=== PATIENT | male | born 1950 | race Caucasian/White ===

== ENCOUNTER 2018-09-21 03:17 | Observation (INO) ==
[2018-09-21 04:25] LABS: Bilirubin,Urine Negative (Negative); Clarity,Urine Clear (Clear); Color,Urine Straw (Yellw/Straw); Glucose,Urine (UA) Negative (Negative); Leukocyte Esterase,Urine Negative (Negative); Nitrite,Urine Negative (Negative); Specific Gravity,Urine 1.003 (1.002-1.035)
[2018-09-21 04:26] LABS: Baso % (Auto) 0.6 % (0.0-2.0); Eos # (Auto) 0.4 th/mm3 (0.0-0.4); Eos % (Auto) 7.4 % (0.0-4.0); Hematocrit 45.5 % (39.0-51.0); Hemoglobin 15.5 gm/dL (13.0-17.0); Lymph # (Auto) 2.1 th/mm3 (1.0-4.8); Mean Corpuscular HGB Conc 34.2 % (32.0-36.0); Mean Corpuscular Hemoglobin 31.4 pg (27.0-34.0); Mean Corpuscular Volume 91.8 fL (80.0-100.0); Mean Platelet Volume 9.6 fL (7.0-11.0); Mono # (Auto) 0.5 th/mm3 (0.0-0.9); Mono % (Auto) 9.3 % (0.0-8.0); Neut # (Auto) 2.6 th/mm3 (1.8-7.7); Neut % (Auto) 45.7 % (16.0-70.0); Platelet Count 139 th/mm3 (150-450); Red Blood Count 4.95 mil/mm3 (4.50-5.90); Red Cell Distribution Width 14.1 % (11.6-17.2); White Blood Count 5.7 th/mm3 (4.0-11.0)
[2018-09-21 04:34] LABS: Activated Partial Thrombo Time 26.9 sec (23.4-31.7); INR 1.1 Ratio; Prothrombin Time 10.8 sec (9.8-11.6)
[2018-09-21 04:41] LABS: Alanine Aminotransferase 33 U/L (12-78); Albumin 3.7 g/dL (3.4-5.0); Anion Gap 7 meq/L (5-15); Aspartate Aminotransferase 27 U/L (15-37); Blood Urea Nitrogen 11 mg/dL (7-18); Calcium 8.6 mg/dL (8.5-10.1); Carbon Dioxide 29.7 meq/L (21.0-32.0); Chloride 105 meq/L (98-107); Glomerular Filtration Rate 89 mL/min (>89); Glucose,Random 90 mg/dL (74-106); Lipase 169 U/L (73-393); Potassium 3.7 meq/L (3.5-5.1); Sodium 142 meq/L (136-145)
[2018-09-21 04:46] LABS: Alkaline Phosphatase 79 U/L (45-117); Creatine Kinase 237 U/L (39-308); Total Protein 7.2 g/dL (6.4-8.2)
--- NOTE | 2018-09-21 04:53 | XR ---
EXAM DATE: 09/21/2018 4:19 AM EDT AGE/SEX: 68 years / Male INDICATIONS: Increased blood pressure, chest pressure. CLINICAL DATA: This is the patient's initial encounter. Patient reports that signs and symptoms have been present for 2 weeks and indicates a pain score of 0/10. MEDICAL/SURGICAL HISTORY: None. None. COMPARISON: . FINDINGS: A single AP view of the chest demonstrates the lungs to be symmetrically aerated without evidence of mass, infiltrate or effusion. The cardiomediastinal contours are unremarkable. Osseous structures a re intact. CONCLUSION: No acute cardiopulmonary disease. Electronically signed by: Luis Crawley MD 09/21/2018 4:52 AM EDT
[2018-09-21 04:58] LABS: Creatine Kinase MB 3.3 ng/mL (0.5-3.6)
[2018-09-21] MEDS ORDERED: Aspirin 325 MG Tablet PO ONE (05:03)
--- NOTE | 2018-09-21 05:13 | ED ---
HPI General Chief Complaint: Chest Pain Stated Complaint: weakness Time Seen by Provider: 09/21/18 04:52 Source: patient Mode of arrival: ambulatory Limitations: no limitations History of Present Illness HPI narrative: Patient is a 68-year-old male who presents the emergency room with multiple complaints. Patient reports that for the past few weeks, he has been having chest pain. Patient reports that he has had "pressure to his chest " which is substernal in nature. Patient reports that nothing really makes his symptoms better or worse. Reports that tonight he was concerned as he began to felt weak and took his blood pressure, patient reports that his blood pressure was high. Patient reports no history of hypertension although he was told by his chiropractor that his blood pressure is high. Patient reports that chest pain currently is substernal in nature but pain does move to his left chest and to his abdomen. He denies any diaphoresis, denies any nausea or vomiting with the symptoms. Related Data Home Medications Medication Instructions Recorded Confirmed Unable to Obtain Home Meds 09/21/18 09/21/18 Allergies Allergy/AdvReac Type Severity Reaction Status Date / Time No Known Allergies Allergy Verified 09/21/18 03:30 Review of Systems ROS: all other systems reviewed are negative [facility] Medical History Medical History Hx of thyroid cyst (Acute) Surgical History Surgical History Hx of cholecystectomy (Acute) Social History Social History Substance History: No History of Abuse Smoking Status: Former smoker How Often Do You Have a Drink Containing Alcohol: Monthly or less Recent Travel in [facility] within the Last 8 Weeks: No Recent Out of Country Travel within the Last 8 Weeks: No Immunization History Tetanus Immunization: Unsure Exam Narrative Exam Narrative: GENERAL: NAD SKIN: Focused skin assessment warm/dry. HEAD: Atraumatic. Normocephalic. EYES: Pupils equal and round. No scleral icterus. No injection or drainage. ENT: No nasal bleeding or discharge. Mucous membranes pink and moist. NECK: Trachea midline. No JVD. CARDIOVASCULAR: Regular rate and rhythm. No murmur appreciated. RESPIRATORY: No accessory muscle use. Clear to auscultation. Breath sounds equal bilaterally. GASTROINTESTINAL: Abdomen soft, non-tender, nondistended. Hepatic and splenic margins not palpable. MUSCULOSKELETAL: No obvious deformities. No clubbing. No cyanosis. No edema. NEUROLOGICAL: Awake and alert. No obvious cranial nerve deficits. Motor grossly within normal limits. Normal speech. PSYCHIATRIC: Extremely anxious mood and affect; insight and judgment normal. Clinical Decision Support HEART Score Questions History: Slightly suspicious EKG: Normal Age: 65 years+ Risk Factors: 1-2 Risk Factors Initial Troponin: Normal Limit Heart Score HEART Score: 3 Medical Decision Making MDM Narrative Medical decision making narrative: During the course of the patients emergency department visit, the patients history, examination, and differential diagnosis were reviewed with the patient. The patient was placed on a surveillance system monitor with oximetry and frequent blood pressure monitoring. The patient had an IV access obtained and blood work sent for analysis. The patient was initially provided aspirin. The patients laboratory studies were reviewed and remarkable for WBC 5.7, hemoglobin 15.5, hematocrit 45.5, platelets 139 Sodium 142, potassium 3.7, chloride 105, BUN 11, creatinine 0.85, glucose 90 Troponin less than 0.02, BNP 25, lipase 169 X-ray of the chest with no acute process Patient with a heart score of 3, patient with low risk cardiac chest pain. I did review this with patient but he is concerned that he is going to go home and have a heart attack. Discussed with the patient that I can observe him in the chest pain unit overnight for serial troponin. Medical Screen Exam Complete: Yes Emergency Medical Condition: Yes Differential Diagnosis Differential Diagnosis: Hypertensive urgency, ACS, arrhythmia, electrolyte abnormality, anxiety reaction Lab Data Lab results reviewed: Yes I reviewed the patient's lab results. Result diagrams: 09/21/18 04:00 09/21/18 04:00 Lab Results 09/21/18 09/21/18 09/21/18 Range/Units 04:00 04:00 04:00 WBC 5.7 (4.0-11.0) th/mm3 RBC 4.95 (4.50-5.90) mil/mm3 Hgb 15.5 (13.0-17.0) gm/dL Hct 45.5 (39.0-51.0) % MCV 91.8 (80.0-100.0) fL MCH 31.4 (27.0-34.0) pg MCHC 34.2 (32.0-36.0) % RDW 14.1 (11.6-17.2) % Plt Count 139 L (150-450) th/mm3 MPV 9.6 (7.0-11.0) fL Neut % (Auto) 45.7 (16.0-70.0) % Lymph % (Auto) 37.0 (9.0-44.0) % [place] % (Auto) 9.3 H (0.0-8.0) % Eos % (Auto) 7.4 H (0.0-4.0) % Baso % (Auto) 0.6 (0.0-2.0) % Neut # (Auto) 2.6 (1.8-7.7) th/mm3 Lymph # (Auto) 2.1 (1.0-4.8) th/mm3 [place] # (Auto) 0.5 (0.0-0.9) th/mm3 Eos # (Auto) 0.4 (0.0-0.4) th/mm3 Baso # (Auto) 0.0 (0.0-0.2) th/mm3 WBC Differential . Differential Comment Auto diff final PT 10.8 (9.8-11.6) sec INR 1.1 Ratio APTT 26.9 (23.4-31.7) sec Sodium 142 (136-145) meq/L Potassium 3.7 (3.5-5.1) meq/L Chloride 105 (98-107) meq/L Carbon Dioxide 29.7 (21.0-32.0) meq/L Anion Gap 7 (5-15) meq/L BUN 11 (7-18) mg/dL Creatinine 0.85 (0.60-1.30) mg/dL Estimated GFR 89 (>89) mL/min Random Glucose 90 (74-106) mg/dL Calcium 8.6 (8.5-10.1) mg/dL Total Bilirubin 1.2 H (0.2-1.0) mg/dL AST 27 (15-37) U/L ALT 33 (12-78) U/L Alkaline Phosphatase 79 (45-117) U/L Total Creatine Kinase 237 (39-308) U/L CK-MB (CK-2) 3.3 (0.5-3.6) ng/mL Troponin I Less than 0.02 L (0.02-0.05) ng/mL B-Natriuretic Peptide (0-100) pg/mL Total Protein 7.2 (6.4-8.2) g/dL Albumin 3.7 (3.4-5.0) g/dL Lipase 169 (73-393) U/L Urine Color (Yellw/Straw) Urine Clarity (Clear) Urine pH (5.0-8.5) Ur Specific [place] (1.002-1.035) Urine Protein (Neg-Trace) mg/dL Urine Glucose (UA) (Negative) mg/dL Urine Ketones (Negative) mg/dL Urine Occult Blood (Negative) Urine Nitrate (Negative) Urine Bilirubin (Negative) Urine Urobilinogen (Less than 2) mg/dL Ur Leukocyte Esterase (Negative) Urine RBC (0-3) /hpf Urine WBC (0-5) /hpf Micro UA Comment Ur Microscopic Review Urine Culture Comments 09/21/18 09/21/18 Range/Units 04:00 04:00 WBC (4.0-11.0) th/mm3 RBC (4.50-5.90) mil/mm3 Hgb (13.0-17.0) gm/dL Hct (39.0-51.0) % MCV (80.0-100.0) fL MCH (27.0-34.0) pg MCHC (32.0-36.0) % RDW (11.6-17.2) % Plt Count (150-450) th/mm3 MPV (7.0-11.0) fL Neut % (Auto) (16.0-70.0) % Lymph % (Auto) (9.0-44.0) % Cannon % (Auto) (0.0-8.0) % Eos % (Auto) (0.0-4.0) % Baso % (Auto) (0.0-2.0) % Neut # (Auto) (1.8-7.7) th/mm3 Lymph # (Auto) (1.0-4.8) th/mm3 [place] # (Auto) (0.0-0.9) th/mm3 Eos # (Auto) (0.0-0.4) th/mm3 Baso # (Auto) (0.0-0.2) th/mm3 WBC Differential Differential Comment PT (9.8-11.6) sec INR Ratio APTT (23.4-31.7) sec Sodium (136-145) meq/L Potassium (3.5-5.1) meq/L Chloride (98-107) meq/L Carbon Dioxide (21.0-32.0) meq/L Anion Gap (5-15) meq/L BUN (7-18) mg/dL Creatinine (0.60-1.30) mg/dL Estimated GFR (>89) mL/min Random Glucose (74-106) mg/dL Calcium (8.5-10.1) mg/dL Total Bilirubin (0.2-1.0) mg/dL AST (15-37) U/L ALT (12-78) U/L Alkaline Phosphatase (45-117) U/L Total Creatine Kinase (39-308) U/L CK-MB (CK-2) (0.5-3.6) ng/mL Troponin I (0.02-0.05) ng/mL B-Natriuretic Peptide 25 (0-100) pg/mL Total Protein (6.4-8.2) g/dL Albumin (3.4-5.0) g/dL Lipase (73-393) U/L Urine Color Straw (Yellw/Straw) Urine Clarity Clear (Clear) Urine pH 7.0 (5.0-8.5) Ur Specific [place] 1.003 (1.002-1.035) Urine Protein Negative (Neg-Trace) mg/dL Urine Glucose (UA) Negative (Negative) mg/dL Urine Ketones Negative (Negative) mg/dL Urine Occult Blood Negative (Negative) Urine Nitrate Negative (Negative) Urine Bilirubin Negative (Negative) Urine Urobilinogen Less than 2 (Less than 2) mg/dL Ur Leukocyte Esterase Negative (Negative) Urine RBC Less than 1 (0-3) /hpf Urine WBC 1 (0-5) /hpf Micro UA Comment Culture not ind Ur Microscopic Review Not Reportable Urine Culture Comments Culture not ind Imaging Data Attestation: I personally reviewed and interpreted this imaging study as follows : Radiologist's impression: Chest X-Ray 09/21/18 03:47 CONCLUSION: No acute cardiopulmonary disease. ECG Data EKG Prior to Arrival: No Attestation: I personally reviewed and interpreted this ECG as follows: Interpretation: EKG at 0340 shows sinus bradycardia at 58 bpm, QT/QTc 404/401, there are no acute ST-T wave changes Discharge Plan Discharge Disposition Patient Disposition: 30 Still Patient Discharge Condition Condition: Stable Discharge Details Diagnosis: Chest pain Physicians Team ED Provider: Janeth Candelario Primary Care Provider: Iveth Peter Rxs /Orders / Referrals /Forms Prescriptions: No Action Unable to Obtain Home Meds RF: 0 Discharge Instructions Patient Printed Instructions: Chest Pain (ED) Status ED Status: With Doctor
[2018-09-21 08:37] VITALS: RESP 16; O2SAT 96
[2018-09-21 09:14] LABS: Creatine Kinase 232 U/L (39-308)
[2018-09-21 09:28] LABS: Creatine Kinase MB 2.6 ng/mL (0.5-3.6)
[2018-09-21] MEDS ORDERED: Lisinopril 5 MG Tablet PO ONE (10:00)
--- NOTE | 2018-09-21 10:42 | P.HPCA ---
History of Present Illness Primary Care Physician: Iveth Peter MD Chief Complaint: Chest pain History of Present Illness: This is a 68-year-old male that presents to ED with multiple complaints but primarily with a complaint of chest discomfort that he states has been intermittent since September 04, 2018. Lasted a few hours when it occurs. Nothing in particular brings it on however he thinks it is related to getting a pneumonia vaccine while having elevated eosinophils. Complains of a sensation in his right great toe, weakness, elevated blood pressures at his chiropractor and digital marketing officer thinks need to be treated. States his digital marketing officer gave him small pills that her dose by weight and he took 6 of them yesterday and still thinks that his blood pressure was elevated. Has history of hyperlipidemia but never does not want to take medicine for this stating that he read a study from [place] discussing the role because of heart disease and it is not cholesterol. History of hyperlipidemia but no medication. Denies prior history of hypertension but states his blood pressures have been elevated more recently but no medication other than the small pills were given to him by an digital marketing officer 2 days ago. Denies diabetes and known CAD. States that his father age 55 an [place]. - Diagnosis (1) Chest pain (2) Hyperlipidemia (3) Umbilical hernia (4) Elevated blood pressure reading Review of Systems General: Patient denies fevers, chills, and recent travel. HEENT: Patient denies headache, sore throat, difficulty swallowing. Cardiovascular: Has the chest discomfort as mentioned above. Denies sensation of heart beating rapidly or irregularly. No syncope. Denies diaphoresis. Respiratory: Denies shortness of breath or inspirational chest discomfort. Denies coughing wheezing or hemoptysis. GI: Patient denies nausea, vomiting, diarrhea, abdominal pain, bloody stools. Musculoskeletal: Patient denies joint pain or edema. Denies calf pain or edema. Neurovascular: Patient denies numbness, tingling, weakness in extremities. Denies headache. Endocrine: Denies polyuria and polydipsia. Hematologic: Denies easy bruising. Skin: Denies rash or itching. PMFSH - History History Provided By: Patient - Medical History Medical History: Medical History (Last Reviewed 09/21/18 @ 05:08 by Janeth Candelario) Hx of thyroid cyst - Surgical History Surgical History: Surgical History (Last Reviewed 09/21/18 @ 05:08 by Janeth Candelario) Hx of cholecystectomy - Tobacco History Smoking Status: Former smoker - Alcohol History How Often Do You Have a Drink Containing Alcohol: Monthly or less - Substance Use History Substance History: No History of Abuse - Travel History Recent Travel in the [place] Within the Last 8 Weeks: No Recent Travel Out of the Country Within the Last 8 Weeks: No - Immunization History Tetanus Immunization: Unsure Medications and Allergies Active Medications: Active Medications Sodium Chloride (Ns Flush) 2 ml IV.FLUSH UNSCH PRN PRN Reason: FLUSH AFTER USING IV ACCESS Allergies Allergy/AdvReac Type Severity Reaction Status Date / Time No Known Allergies Allergy Verified 09/21/18 03:30 Home Medications Medication Instructions Recorded Confirmed Type No Known Home Medications 09/21/18 09/21/18 History Exam Vital signs: Vital Signs 09/21/18 03:47 09/21/18 05:04 09/21/18 06:41 Temperature 98.1 F Pulse Rate 63 59 L 63 Respiratory Rate 18 18 18 Blood Pressure 191/101 H 193/97 H 171/85 H Pulse Oximetry 97 97 97 09/21/18 07:10 09/21/18 07:18 09/21/18 08:25 Temperature 98.2 F 97.7 F Pulse Rate 61 64 63 Respiratory Rate 24 17 Blood Pressure 177/91 H 157/86 H Pulse Oximetry 98 09/21/18 08:35 Temperature 98.2 F Pulse Rate 60 Respiratory Rate 16 Blood Pressure 157/88 H Pulse Oximetry 96 Intake & Output 09/20/18 09/21/18 09/21/18 18:59 06:59 18:59 Weight 88.451 kg Narrative: GENERAL: This is a well-nourished, well-developed patient, in no apparent distress. Patient speaks in clear complete sentences. Patient is pleasant. HEENT: Head is atraumatic and normocephalic. Neck is supple without lymphadenopathy and trachea is midline. No JVD or carotid bruits. CARDIOVASCULAR: Regular rate and rhythm without murmurs, gallops, or rubs. RESPIRATORY: Clear to auscultation. Breath sounds equal bilaterally. No wheezes , rales, or rhonchi. Chest wall is nontender. No use of accessory muscles. GASTROINTESTINAL: Abdomen is tender at the umbilicus which he states he has had for quite some time and is related to a umbilical hernia, nondistended. Abdomen soft. No obvious pulsatile mass or bruit. No CVA tenderness. Strong femoral pulses bilaterally. Normal bowel sounds in all quadrants. MUSCULOSKELETAL: Patient is moving upper and lower extremities freely. No calf tenderness or edema, no Homans sign. Strong pulses in upper and lower extremities. NEUROLOGICAL: Patient is alert and oriented. Cranial nerves 2-12 are grossly intact. No focal deficits and speech is clear. SKIN: No rash and turgor is normal. Results 09/21/18 04:00 09/21/18 04:00 Cardiac Enzymes 09/21/18 09/21/18 09/21/18 Range/Units 04:00 04:00 08:10 AST 27 (15-37) U/L CK-MB (CK-2) 3.3 2.6 (0.5-3.6) ng/mL Troponin I Less than 0.02 L Less than 0.02 L (0.02-0.05) ng/mL B-Natriuretic Peptide 25 (0-100) pg/mL Coagulation 09/21/18 09/21/18 Range/Units 04:00 04:00 PT 10.8 (9.8-11.6) sec APTT 26.9 (23.4-31.7) sec B-Natriuretic Peptide 25 (0-100) pg/mL CBC 09/21/18 Range/Units 04:00 WBC 5.7 (4.0-11.0) th/mm3 RBC 4.95 (4.50-5.90) mil/mm3 Hgb 15.5 (13.0-17.0) gm/dL Hct 45.5 (39.0-51.0) % Plt Count 139 L (150-450) th/mm3 Neut # (Auto) 2.6 (1.8-7.7) th/mm3 Lymph # (Auto) 2.1 (1.0-4.8) th/mm3 [place] # (Auto) 0.5 (0.0-0.9) th/mm3 Eos # (Auto) 0.4 (0.0-0.4) th/mm3 Baso # (Auto) 0.0 (0.0-0.2) th/mm3 Comprehensive Metabolic Panel 09/21/18 Range/Units 04:00 Sodium 142 (136-145) meq/L Potassium 3.7 (3.5-5.1) meq/L Chloride 105 (98-107) meq/L Carbon Dioxide 29.7 (21.0-32.0) meq/L BUN 11 (7-18) mg/dL Creatinine 0.85 (0.60-1.30) mg/dL Calcium 8.6 (8.5-10.1) mg/dL AST 27 (15-37) U/L ALT 33 (12-78) U/L Alkaline Phosphatase 79 (45-117) U/L Total Protein 7.2 (6.4-8.2) g/dL Albumin 3.7 (3.4-5.0) g/dL Intake and Output 09/20/18 09/21/18 09/21/18 22:59 06:59 14:59 Other: Weight 88.451 kg - Imaging and Cardiology Imaging: Impressions Chest X-Ray 09/21/18 03:47 CONCLUSION: No acute cardiopulmonary disease. EKG interpretations - EKG EKG shows: sinus rhythm Caprini VTE Risk Assessment Caprini VTE Risk Assessment: Moderate/High Risk (score >= 2) Caprini Risk Assessment Model: Point Value = 1 Point Value = 2 Point Value = 3 Point Value = 5 Age 41-60 Minor surgery BMI > 25 kg/m2 Swollen legs Varicose veins or History of unexplained or recurrent spontaneous Oral contraceptives or hormone replacement Sepsis (< 1 month) Serious lung disease, including pneumonia (< 1 month) Abnormal pulmonary function Acute myocardial infarction Congestive heart failure (< 1 month) History of inflammatory bowel disease Medical patient at bed rest Age 61-74 Arthroscopic surgery Major open surgery (> 45 min) Laparoscopic surgery (> 45 min) Malignancy Confined to bed (> 72 hours) Immobilizing plaster cast Central venous access Age >= 75 History of VTE Family history of VTE Factor V Leiden Prothrombin [id number] Lupus anticoagulant Anticardiolipin antibodies Elevated serum homocysteine Heparin-induced thrombocytopenia Other congenital or acquired thrombophilia Stroke (< 1 month) Elective arthroplasty Hip, pelvis, or leg fracture Acute spinal cord injury (< 1 month) Prophylaxis Regimen: Total Risk Factor Score Risk Level Prophylaxis Regimen 0-1 Low Early ambulation 2 Moderate Order ONE of the following: *Sequential Compression Device (SCD) *Heparin 5000 units SQ BID 3-4 Higher Order ONE of the following medications: *Heparin 5000 units SQ TID *Enoxaparin/Lovenox 40 mg SQ daily (WT < 150 kg, CrCl > 30 mL/min) *Enoxaparin/Lovenox 30 mg SQ daily (WT < 150 kg, CrCl > 10-29 mL/min) *Enoxaparin/Lovenox 30 mg SQ BID (WT < 150 kg, CrCl > 30 mL/min) AND/OR *Sequential Compression Device (SCD) 5 or more Highest Order ONE of the following medications: *Heparin 5000 units SQ TID (Preferred with Epidurals) *Enoxaparin/Lovenox 40 mg SQ daily (WT < 150 kg, CrCl > 30 mL/min) *Enoxaparin/Lovenox 30 mg SQ daily (WT < 150 kg, CrCl > 10-29 mL/min) *Enoxaparin/Lovenox 30 mg SQ BID (WT < 150 kg, CrCl > 30 mL/min) AND *Sequential Compression Device (SCD) Assessment and Plan - Assessment (1) Chest pain Code(s): R07.9 - Chest pain, unspecified Status: Acute (2) Hyperlipidemia Code(s): E78.5 - Hyperlipidemia, unspecified Status: Acute (3) Umbilical hernia Code(s): K42.9 - Umbilical hernia without obstruction or gangrene Status: Acute (4) Elevated blood pressure reading Code(s): R03.0 - Elevated blood-pressure reading, without diagnosis of hypertension Status: Acute - Plan * Chest pain: Patient has had first 2 sets of cardiac enzymes and EKGs for ruling out purposes. He will be seen by Dr. Latham of cardiology in the chest pain center. He will undergo a Lexiscan and likely be discharged home if stress test is nonischemic with instructions to follow-up with PCP. * Hyperlipidemia: Patient is discussed this with his physician. He is still reluctant to go on statin therapy. * Elevated blood pressure: Patient reluctant to go on medication for this. He should discuss it with his physician. Agreed to take one medication this morning. * Umbilical hernia: Patient has had umbilical hernia for some time. It has become tender over the last year or so. She discussed this with his physician to get referral. Patient is stable at this time. He is agreeable to this plan. (1) Chest pain Qualifiers: Chest pain type: unspecified Qualified Code(s): R07.9 - Chest pain, unspecified
[2018-09-21 11:37] LABS: Creatine Kinase 203 U/L (39-308)
[2018-09-21 11:49] LABS: Creatine Kinase MB 2.3 ng/mL (0.5-3.6)
[2018-09-21] MEDS ORDERED: Regadenoson Inj 0.4 MG/5 ML Syringe IV.PUSH ONE (11:52)
--- NOTE | 2018-09-21 13:24 | NM ---
EXAM DATE: 09/21/2018 1:02 PM EDT AGE/SEX: 68 years / Male INDICATIONS:Angina. . Substernal chest pain. CLINICAL DATA: This is the patient's initial encounter. Patient reports that signs and symptoms have been present for 1 day and indicates a pain score of 0/10. MEDICAL/SURGICAL HISTORY: None. Cholecystectomy. COMPARISON: No prior exams available for comparison. DOSE: 8.6 mCi Tc 99m Myoview at rest 26.3 mCi [id number] at stress 0.4 mg Lexiscan STRESS SYMPTOMS: Dyspnea. EJECTION FRACTION: 69 % TECHNIQUE: The patient underwent pharmacologic stress with infusion of prescribed dose. Continuous ECG tracing was monitored during stress. Gated SPECT imaging was performed after stress and conventi onal SPECT imaging was performed at rest. The examination was performed on a SPECT/CT scanner, both attenuation and non-corrected datasets were reviewed. FINDINGS: Overall perfusion is better at stress than rest. There is minimal redistribution in the mid anterior myocardium involving a moderate-sized segment. Ejection fraction is 69% with normal wall motion. RISK CATEGORY: Low (<1% Annual Motality Rate) CONCLUSION: 1. Stress-induced ischemia involving a moderate segment of the anterior myocardium. Electronically signed by: Reinaldo Marcos MD 09/21/2018 1:22 PM EDT
[2018-09-21] MEDS ORDERED: Sod Chloride 0.9% Inj 1,000 ML IV.CONT SCH (15:08)
[2018-09-21] MEDS ORDERED: amLODIPine 5 MG Tablet PO SCH (15:30)
--- NOTE | 2018-09-21 15:39 | P.DS ---
Date of admission: 09/21/18 05:03 Primary care physician: Iveth Altamirano MD Attending physician on discharge: Reinaldo Mckeon Anticipated date of discharge: 09/21/18 Brief History from admission: This is a 68-year-old male that presents to ED with multiple complaints but primarily with a complaint of chest discomfort that he states has been intermittent since September 04, 2018. Lasted a few hours when it occurs. Nothing in particular brings it on however he thinks it is related to getting a pneumonia vaccine while having elevated eosinophils. Complains of a sensation in his right great toe, weakness, elevated blood pressures at his chiropractor and factory manager thinks need to be treated. States his factory manager gave him small pills that her dose by weight and he took 6 of them yesterday and still thinks that his blood pressure was elevated. Has history of hyperlipidemia but never does not want to take medicine for this stating that he read a study from [place] discussing the role because of heart disease and it is not cholesterol. History of hyperlipidemia but no medication. Denies prior history of hypertension but states his blood pressures have been elevated more recently but no medication other than the small pills were given to him by an factory manager 2 days ago. Denies diabetes and known CAD. States that his father age 55 an DC. Patient update on day of discharge: Chief Complaint: Chest pain History of Present Illness: This is a 68-year-old male that presents to ED with multiple complaints but primarily with a complaint of chest discomfort that he states has been intermittent since September 04, 2018. Lasted a few hours when it occurs. Nothing in particular brings it on however he thinks it is related to getting a pneumonia vaccine while having elevated eosinophils. Complains of a sensation in his right great toe, weakness, elevated blood pressures at his chiropractor and factory manager thinks need to be treated. States his factory manager gave him small pills that her dose by weight and he took 6 of them yesterday and still thinks that his blood pressure was elevated. Has history of hyperlipidemia but never does not want to take medicine for this stating that he read a study from [place] discussing the role because of heart disease and it is not cholesterol. History of hyperlipidemia but no medication. Denies prior history of hypertension but states his blood pressures have been elevated more recently but no medication other than the small pills were given to him by an factory manager 2 days ago. Denies diabetes and known CAD. States that his father age 55 an DC. 09-21 patient was transferred to our service today. Patient had positive stress test and nuclear. Was seen by Dr. Freeman of cardiology offered cardiac catheterization and intervention as needed patient refused cardiac catheterization and intervention as needed would prefer to be discharged to home today. Will write out prescriptions for his medical management only with oral medications and patient can be discharged to home later today to follow-up with his primary care physician Dr. ALTAMIRANO DS: Diagnosis - Discharge Diagnosis (1) Chest pain Status: Acute (2) Hyperlipidemia Status: Acute (3) Elevated blood pressure reading Status: Acute DS: Medications - Discharge Medications Prescriptions: amlodipine [Norvasc] 5 mg PO DAILY #30 tab aspirin 325 mg PO DAILY #30 tab atorvastatin 40 mg PO HS #30 tab metoprolol tartrate 25 mg PO BID #60 tab nitroglycerin 0.4 mg SUBLINGUAL Q5-15M PRN #100 tab PRN Reason: Chest Pain DS: Summary Hospital Course: Chief Complaint: Chest pain History of Present Illness: This is a 68-year-old male that presents to ED with multiple complaints but primarily with a complaint of chest discomfort that he states has been intermittent since September 04, 2018. Lasted a few hours when it occurs. Nothing in particular brings it on however he thinks it is related to getting a pneumonia vaccine while having elevated eosinophils. Complains of a sensation in his right great toe, weakness, elevated blood pressures at his chiropractor and factory manager thinks need to be treated. States his factory manager gave him small pills that her dose by weight and he took 6 of them yesterday and still thinks that his blood pressure was elevated. Has history of hyperlipidemia but never does not want to take medicine for this stating that he read a study from [place] discussing the role because of heart disease and it is not cholesterol. History of hyperlipidemia but no medication. Denies prior history of hypertension but states his blood pressures have been elevated more recently but no medication other than the small pills were given to him by an factory manager 2 days ago. Denies diabetes and known CAD. States that his father age 55 an DC. 09-21 patient was transferred to our service today. Patient had positive stress test and nuclear. Was seen by Dr. Freeman of cardiology offered cardiac catheterization and intervention as needed patient refused cardiac catheterization and intervention as needed would prefer to be discharged to home today. Will write out prescriptions for his medical management only with oral medications and patient can be discharged to home later today to follow-up with his primary care physician Dr. ALTAMIRANO - Time Spent with Patient Total time spent providing and/or coordinating discharge services: Greater than 30 minutes Exam Vital signs: Vital Signs 09/21/18 03:47 09/21/18 05:04 09/21/18 06:41 Temperature 98.1 F Pulse Rate 63 59 L 63 Respiratory Rate 18 Blood Pressure 191/101 H 193/97 H 171/85 H Pulse Oximetry 97 97 97 09/21/18 07:10 09/21/18 07:18 09/21/18 08:25 Temperature 98.2 F 97.7 F Pulse Rate 61 64 63 Respiratory Rate 24 17 Blood Pressure 177/91 H 157/86 H Pulse Oximetry 98 09/21/18 08:35 Temperature 98.2 F Pulse Rate 60 Respiratory Rate 16 Blood Pressure 157/88 H Pulse Oximetry 96 Intake & Output 09/20/18 09/21/18 09/21/18 18:59 06:59 18:59 Weight 88.451 kg Narrative: GENERAL: This is a well-nourished, well-developed patient, in no apparent distress. Patient speaks in clear complete sentences. Patient is pleasant. HEENT: Head is atraumatic and normocephalic. Neck is supple without lymphadenopathy and trachea is midline. No JVD or carotid bruits. CARDIOVASCULAR: Regular rate and rhythm without murmurs, gallops, or rubs. RESPIRATORY: Clear to auscultation. Breath sounds equal bilaterally. No wheezes , rales, or rhonchi. Chest wall is nontender. No use of accessory muscles. GASTROINTESTINAL: Abdomen is tender at the umbilicus which he states he has had for quite some time and is related to a umbilical hernia, nondistended. Abdomen soft. No obvious pulsatile mass or bruit. No CVA tenderness. Strong femoral pulses bilaterally. Normal bowel sounds in all quadrants. MUSCULOSKELETAL: Patient is moving upper and lower extremities freely. No calf tenderness or edema, no Homans sign. Strong pulses in upper and lower extremities. NEUROLOGICAL: Patient is alert and oriented. Cranial nerves 2-12 are grossly intact. No focal deficits and speech is clear. SKIN: No rash and turgor is normal. Results Procedures completed during hospitalization: NONE REFUSED CARDIAC CATH FOR POSITIVE STRESS TEST Completed studies during hospitalization: Laboratory Results WBC 5.7 th/mm3 (4.0-11.0) 09/21/18 04:00 RBC 4.95 mil/mm3 (4.50-5.90) 09/21/18 04:00 Hgb 15.5 gm/dL (13.0-17.0) 09/21/18 04:00 Hct 45.5 % (39.0-51.0) 09/21/18 04:00 MCV 91.8 fL (80.0-100.0) 09/21/18 04:00 MCH 31.4 pg (27.0-34.0) 09/21/18 04:00 MCHC 34.2 % (32.0-36.0) 09/21/18 04:00 RDW 14.1 % (11.6-17.2) 09/21/18 04:00 Plt Count 139 th/mm3 (150-450) L 09/21/18 04:00 MPV 9.6 fL (7.0-11.0) 09/21/18 04:00 Neut % (Auto) 45.7 % (16.0-70.0) 09/21/18 04:00 Lymph % (Auto) 37.0 % (9.0-44.0) 09/21/18 04:00 Desha % (Auto) 9.3 % (0.0-8.0) H 09/21/18 04:00 Eos % (Auto) 7.4 % (0.0-4.0) H 09/21/18 04:00 Baso % (Auto) 0.6 % (0.0-2.0) 09/21/18 04:00 Neut # (Auto) 2.6 th/mm3 (1.8-7.7) 09/21/18 04:00 Lymph # (Auto) 2.1 th/mm3 (1.0-4.8) 09/21/18 04:00 Desha # (Auto) 0.5 th/mm3 (0.0-0.9) 09/21/18 04:00 Eos # (Auto) 0.4 th/mm3 (0.0-0.4) 09/21/18 04:00 Baso # (Auto) 0.0 th/mm3 (0.0-0.2) 09/21/18 04:00 WBC Differential . 09/21/18 04:00 Differential Comment Auto diff final 09/21/18 04:00 PT 10.8 sec (9.8-11.6) 09/21/18 04:00 INR 1.1 Ratio 09/21/18 04:00 APTT 26.9 sec (23.4-31.7) 09/21/18 04:00 Sodium 142 meq/L (136-145) 09/21/18 04:00 Potassium 3.7 meq/L (3.5-5.1) 09/21/18 04:00 Chloride 105 meq/L (98-107) 09/21/18 04:00 Carbon Dioxide 29.7 meq/L (21.0-32.0) 09/21/18 04:00 Anion Gap 7 meq/L (5-15) 09/21/18 04:00 BUN 11 mg/dL (7-18) 09/21/18 04:00 Creatinine 0.85 mg/dL (0.60-1.30) 09/21/18 04:00 Estimated GFR 89 mL/min (>89) 09/21/18 04:00 Random Glucose 90 mg/dL (74-106) 09/21/18 04:00 Calcium 8.6 mg/dL (8.5-10.1) 09/21/18 04:00 Total Bilirubin 1.2 mg/dL (0.2-1.0) H 09/21/18 04:00 AST 27 U/L (15-37) 09/21/18 04:00 ALT 33 U/L (12-78) 09/21/18 04:00 Alkaline Phosphatase 79 U/L (45-117) 09/21/18 04:00 Total Creatine Kinase 203 U/L (39-308) 09/21/18 10:44 CK-MB (CK-2) 2.3 ng/mL (0.5-3.6) 09/21/18 10:44 Troponin I Less than 0.02 ng/mL (0.02-0.05) L 09/21/18 10:44 B-Natriuretic Peptide 25 pg/mL (0-100) 09/21/18 04:00 Total Protein 7.2 g/dL (6.4-8.2) 09/21/18 04:00 Albumin 3.7 g/dL (3.4-5.0) 09/21/18 04:00 Lipase 169 U/L (73-393) 09/21/18 04:00 Urine Color Straw (Yellw/Straw) 09/21/18 04:00 Urine Clarity Clear (Clear) 09/21/18 04:00 Urine pH 7.0 (5.0-8.5) 09/21/18 04:00 Ur Specific [place] 1.003 (1.002-1.035) 09/21/18 04:00 Urine Protein Negative mg/dL (Neg-Trace) 09/21/18 04:00 Urine Glucose (UA) Negative mg/dL (Negative) 09/21/18 04:00 Urine Ketones Negative mg/dL (Negative) 09/21/18 04:00 Urine Occult Blood Negative (Negative) 09/21/18 04:00 Urine Nitrate Negative (Negative) 09/21/18 04:00 Urine Bilirubin Negative (Negative) 09/21/18 04:00 Urine Urobilinogen Less than 2 mg/dL (Less than 2) 09/21/18 04:00 Ur Leukocyte Esterase Negative (Negative) 09/21/18 04:00 Urine RBC Less than 1 /hpf (0-3) 09/21/18 04:00 Urine WBC 1 /hpf (0-5) 09/21/18 04:00 Micro UA Comment Culture not ind 09/21/18 04:00 Ur Microscopic Review Not Reportable 09/21/18 04:00 Urine Culture Comments Culture not ind 09/21/18 04:00 Impressions Chest X-Ray 09/21/18 03:47 CONCLUSION: No acute cardiopulmonary disease. Myocardial Perfusion Scan Nuc Med 09/21/18 09:50 CONCLUSION: 1. Stress-induced ischemia involving a moderate segment of the anterior myocardium. Labs on day of discharge: Labs from last 24 hours 09/21/18 09/21/18 09/21/18 10:44 08:10 04:00 WBC RBC Hgb Hct MCV MCH MCHC RDW Plt Count MPV Neut % (Auto) Lymph % (Auto) Desha % (Auto) Eos % (Auto) Baso % (Auto) Neut # (Auto) Lymph # (Auto) Desha # (Auto) Eos # (Auto) Baso # (Auto) WBC Differential Differential Comment PT INR APTT Sodium Potassium Chloride Carbon Dioxide Anion Gap BUN Creatinine Estimated GFR Random Glucose Calcium Total Bilirubin AST ALT Alkaline Phosphatase Total Creatine Kinase 203 232 CK-MB (CK-2) 2.3 2.6 Troponin I Less than 0.02 L Less than 0.02 L B-Natriuretic Peptide Total Protein Albumin Lipase Urine Color Straw Urine Clarity Clear Urine pH 7.0 Ur Specific [place] 1.003 Urine Protein Negative Urine Glucose (UA) Negative Urine Ketones Negative Urine Occult Blood Negative Urine Nitrate Negative Urine Bilirubin Negative Urine Urobilinogen Less than 2 Ur Leukocyte Esterase Negative Urine RBC Less than 1 Urine WBC 1 Micro UA Comment Culture not ind Ur Microscopic Review Not Reportable Urine Culture Comments Culture not ind 09/21/18 09/21/18 09/21/18 04:00 04:00 04:00 WBC RBC Hgb Hct MCV MCH MCHC RDW Plt Count MPV Neut % (Auto) Lymph % (Auto) Desha % (Auto) Eos % (Auto) Baso % (Auto) Neut # (Auto) Lymph # (Auto) Desha # (Auto) Eos # (Auto) Baso # (Auto) WBC Differential Differential Comment PT 10.8 INR 1.1 APTT 26.9 Sodium 142 Potassium 3.7 Chloride 105 Carbon Dioxide 29.7 Anion Gap 7 BUN 11 Creatinine 0.85 Estimated GFR 89 Random Glucose 90 Calcium 8.6 Total Bilirubin 1.2 H AST 27 ALT 33 Alkaline Phosphatase 79 Total Creatine Kinase 237 CK-MB (CK-2) 3.3 Troponin I Less than 0.02 L B-Natriuretic Peptide 25 Total Protein 7.2 Albumin 3.7 Lipase 169 Urine Color Urine Clarity Urine pH Ur Specific [place] Urine Protein Urine Glucose (UA) Urine Ketones Urine Occult Blood Urine Nitrate Urine Bilirubin Urine Urobilinogen Ur Leukocyte Esterase Urine RBC Urine WBC Micro UA Comment Ur Microscopic Review Urine Culture Comments 09/21/18 04:00 WBC 5.7 RBC 4.95 Hgb 15.5 Hct 45.5 MCV 91.8 MCH 31.4 MCHC 34.2 RDW 14.1 Plt Count 139 L MPV 9.6 Neut % (Auto) 45.7 Lymph % (Auto) 37.0 Desha % (Auto) 9.3 H Eos % (Auto) 7.4 H Baso % (Auto) 0.6 Neut # (Auto) 2.6 Lymph # (Auto) 2.1 Desha # (Auto) 0.5 Eos # (Auto) 0.4 Baso # (Auto) 0.0 WBC Differential . Differential Comment Auto diff final PT INR APTT Sodium Potassium Chloride Carbon Dioxide Anion Gap BUN Creatinine Estimated GFR Random Glucose Calcium Total Bilirubin AST ALT Alkaline Phosphatase Total Creatine Kinase CK-MB (CK-2) Troponin I B-Natriuretic Peptide Total Protein Albumin Lipase Urine Color Urine Clarity Urine pH Ur Specific [place] Urine Protein Urine Glucose (UA) Urine Ketones Urine Occult Blood Urine Nitrate Urine Bilirubin Urine Urobilinogen Ur Leukocyte Esterase Urine RBC Urine WBC Micro UA Comment Ur Microscopic Review Urine Culture Comments - Impressions ITS Impressions Chest X-Ray 09/21/18 03:47 CONCLUSION: No acute cardiopulmonary disease. Myocardial Perfusion Scan Nuc Med 09/21/18 09:50 CONCLUSION: 1. Stress-induced ischemia involving a moderate segment of the anterior myocardium. Discharge Plan - Discharge Disposition Patient Disposition: Discharge Home - Discharge Condition Condition: Stable - Discharge Order Discharge Orders: Discharge Order (Routine); Ordered 09/21/18 Ordered By: Reinaldo Mckeon - Discharge Details Anticipated Discharge Date: 09/21/18 Discharge Comment: DC TO HOME TODAY - Physicians Team Primary Care Provider: Iveth Altamirano Attending Provider: Reinaldo Mckeon Other Providers: Figueroa Freeman DO
[2018-09-21 16:33] VITALS: BP 139/86; PULSE 63; TEMP 97.9
--- NOTE | 2018-09-21 19:08 | ECG ---
Date Performed: 09/21/2018 Time Performed: 07:50:45 PTAGE: 68 years EKG: Sinus rhythm Since the previous tracing, no significant change noted NORMAL ECG PREVIOUS TRACING : 09/21/2018 07.48 DOCTOR: Adam Zabala Interpretating Date/Time 09/21/2018 19:08:06
--- NOTE | 2018-09-21 20:27 | ECG ---
Date Performed: 09/21/2018 Time Performed: 03:40:54 PTAGE: 68 years EKG: SINUS BRADYCARDIA BORDERLINE LEFT AXIS DEVIATION BORDERLINE ECG PREVIOUS TRACING : 07/30/1996 07.19 Compared to previous tracing, axis more leftward DOCTOR: Adam Zabala Interpretating Date/Time 09/21/2018 20:26:04
[2018-09-21] MEDS ORDERED: Metoprolol Tartrate 25 MG Tablet PO SCH (21:00)
--- NOTE | 2018-09-22 02:28 | MB ---
cc: Figueroa Freeman DO DATE: 09/21/2018 REASON FOR CONSULTATION: Abnormal stress test. HISTORY OF PRESENT ILLNESS: Suresh Burnette is a 68-year-old male who presented to [facility] due to chest pain, which has been on and off since 09/04/2018. Nothing seems to make it worse and nothing seems to make it better. He states that he got a pneumonia vaccine and while having it, he had elevated eosinophils and he relates everything to this. He keeps saying that he has shaking due to this, chest pain due to this, and a tingling sensation in different areas of his body because of it. He has a history of hyperlipidemia, but does not want to take medications for this because he read the study from [place] that stated that cholesterol is not part of heart disease. He has high blood pressure, but does not take medications other than "small pills" that he was given by his skidder lever operator. In seeing him, he denies current chest pain or shortness of breath. PAST MEDICAL HISTORY: 1. Hypertension. 2. Hyperlipidemia. 3. Thyroid cyst. PAST SURGICAL HISTORY: Cholecystectomy. ALLERGIES: NO KNOWN DRUG ALLERGIES. MEDICATIONS: No known home medications. FAMILY HISTORY: Father at the age of 55 due to an IN. SOCIAL HISTORY: The patient is a former smoker. He denies alcohol or drug abuse. REVIEW OF SYSTEMS: Fourteen systems were reviewed including osteopathic. Pertinent positives and negatives above, otherwise negative. PHYSICAL EXAMINATION: VITAL SIGNS: Temperature 97.9, heart rate 63, blood pressure 139/86, respirations 16, pulse ox 96% on room air. GENERAL: The patient appears well, in no acute distress. Alert, awake and oriented x3. HEENT: Extraocular muscles intact. Mucous membranes moist. NECK: Supple. No JVD at 45 degrees. No carotid bruits heard bilaterally. Carotid upstroke is brisk in nature. HEART: Regular rate and rhythm. Positive first and second heart sounds, but no noted murmurs, gallops or rubs. LUNGS: Clear to auscultation bilaterally. No wheezes, rales or rhonchi. ABDOMEN: Soft, nontender, nondistended. No organomegaly noted. EXTREMITIES: Show no clubbing, cyanosis or edema. Femoral and distal pulses intact bilaterally. NEUROLOGIC: No focal deficits. SKIN: Warm, dry and intact. OSTEOPATHIC: No kyphoscoliosis, lordosis or paraspinal tender points. LABORATORY DATA: Hemoglobin 15.5, hematocrit 45.5, platelets 139, potassium 3.7, BUN 11, creatinine 0.85. Troponin negative x3. Electrocardiogram (09/21/2018 at 07:50), sinus rhythm. No acute ST-T wave changes. IMPRESSION: 1. Chest pain, atypical for coronary insufficiency. 2. Abnormal stress test. 3. Hypertension. 4. Hyperlipidemia. 5. Medical noncompliance. 6. Premature coronary artery disease within the family. RECOMMENDATIONS: 1. Mr. Burnette underwent stress testing, which showed ischemia in the mid anterior wall of moderate size and although described as a low risk study, I would consider this a moderate risk study due to the size of ischemia. 2. I had a long conversation with Mr. Burnette about undergoing cardiac catheterization. I went over the risks, benefits, and alternatives with him multiple times, but ultimately recommended cardiac catheterization to determine his chest pain, especially with the abnormal stress test. 3. He has declined cardiac catheterization. He initially was willing to undergo cardiac catheterization, but stated he would not want a stent placed, or have bypass done and I explained undergoing the risk of the procedure without any potential benefit with intervention would not make sense. 4. During a long discussion, he continually went tangential coming back to everything being due to his recent pneumonia vaccine while having elevated eosinophils and believes that all of his symptoms are due to a reaction of this. I discussed with him that I believe that if he had a reaction, it would be more acute than that, but he was unwilling to listen to this. 5. Discussed with him multiple times that my recommendation would be for cardiac catheterization and that if he did not want that, we would treat him medically as best as possible. 6. He said that he was unwilling to take medications. I did discuss with him that if I placed a stent, he would need to be on multiple cardiac medications, but most importantly dual antiplatelet therapy and he said that he would not take the medications as he does not believe in medications. 7. I went over one last time with him risks, benefits, and alternatives, as well as medical management with the chest pain center team in the room. He ultimately decided against cardiac catheterization and wanted to be discharged home. We will plan on discharging him home on medical management. Thank you for allowing me to see Suresh Burnette. If there are any questions, please do not hesitate to call. Figueroa Freeman DO VGP/sv , 01:00 AM , 01:12 AM
[2018-09-22] MEDS ORDERED: Aspirin 325 MG Tablet PO SCH (09:00)
--- NOTE | 2018-09-23 10:15 | TR ---
Date Performed: 09/21/2018 Time Performed: 11:51:15 DOCTOR: Greyson Garcia DRUG LIST: CLINICAL HISTORY: REASON FOR TEST: REASON FOR ENDING: OBSERVATION: CONCLUSION: Lexiscan stress test was performed under standard four minute protocol. Radionuclide was injected one minute prior to ending the test. No electrocardiographic abormalities were present to suggest ischemia. Nuclear imaging and interpretation are pending. COMMENTS:
== END 2018-09-21 17:13 | disposition home or self-care (01) ==
LOC: NEPE 03:17 → NEDA 03:17 → NEPGCP 08:25
PROVIDERS: ADMIT Hospitalist; ATTEND Hospitalist

== ENCOUNTER 2018-09-24 15:53 | Observation (INO) ==
--- NOTE | 2018-09-24 17:49 | ED ---
HPI General Chief complaint: Neuro Symptoms/Deficit Stated complaint: Patient states leg and toes numbness Time Seen by Provider: 09/24/18 17:29 Source: patient Mode of arrival: ambulatory Limitations: no limitations History of Present Illness HPI narrative: 68-year-old male with history of hypertension, hyperlipidemia, recent admission on 07/23/18 to the chest pain center where he had a stress test that showed stress-induced ischemia involving a moderate segment of the anterior myocardium, evaluated by cardiology at that time and recommended cardiac catheterization with possible stenting. The patient refused this procedure stating [facility] he was unable to do so. He tells me that he has had intermittent discomfort in his left upper chest, but his main concern today is that he is having numbness. Last night he experienced numbness in his right leg that awoke him from sleep and lasted for a few hours. He no longer has numbness. Denies any focal weakness. He shows me that he had a total body ultrasound that was negative for PAD as well as several other things, however did show some mild atherosclerosis around his heart. Currently he is chest pain-free. No back pain. No urinary or bowel incontinence or retention. Related Data Previous Rx's Medication Instructions Recorded amlodipine [Norvasc] 5 mg PO DAILY #30 tab 09/21/18 aspirin 325 mg PO DAILY #30 tab 09/21/18 atorvastatin 40 mg PO HS #30 tab 09/21/18 metoprolol tartrate 25 mg PO BID #60 tab 09/21/18 nitroglycerin 0.4 mg SUBLINGUAL Q5-15M PRN #100 09/21/18 tab Allergies Allergy/AdvReac Type Severity Reaction Status Date / Time No Known Allergies Allergy Verified 09/21/18 03:30 Review of Systems ROS: all other systems reviewed are negative PMFSH Social History Social History Substance History: No History of Abuse Smoking Status: Unknown if ever smoked How Often Do You Have a Drink Containing Alcohol: Monthly or less Recent Travel in [facility] within the Last 8 Weeks: No Recent Out of Country Travel within the Last 8 Weeks: No Exam Narrative Exam Narrative: GENERAL: Well-developed, well-nourished, comfortable, no apparent distress. SKIN: Focused skin assessment warm/dry. HEAD: Atraumatic. Normocephalic. EYES: Pupils equal and round. No scleral icterus. No injection or drainage. ENT: No nasal bleeding or discharge. Mucous membranes pink and moist. NECK: Trachea midline. No JVD. CARDIOVASCULAR: Regular rate and rhythm. No murmur appreciated. Distal pulses brisk and equal bilaterally. RESPIRATORY: No accessory muscle use. Clear to auscultation. Breath sounds equal bilaterally. GASTROINTESTINAL: Abdomen soft, non-tender, nondistended. Hepatic and splenic margins not palpable. MUSCULOSKELETAL: No obvious deformities. No clubbing. No cyanosis. No edema. NEUROLOGICAL: Awake and alert. No obvious cranial nerve deficits. Motor grossly within normal limits. Normal speech. PSYCHIATRIC: Appropriate mood and affect; insight and judgment normal. Course Initial Documented Vital Signs Temperature 98.6 F 09/24/18 16:02 Pulse Rate 72 09/24/18 16:02 Respiratory Rate 16 09/24/18 16:02 Blood Pressure 151/79 H 09/24/18 16:02 Pulse Oximetry 96 09/24/18 16:02 Last Documented Vital Signs Temperature 98.6 F 09/24/18 16:02 Pulse Rate 66 09/24/18 19:00 Respiratory Rate 16 09/24/18 19:00 Blood Pressure 175/100 H 09/24/18 19:00 Pulse Oximetry 97 09/24/18 19:00 Medical Decision Making MDM Narrative Medical decision making narrative: Vital signs reviewed. CBC is unremarkable. CMP is. Cardiac enzymes are negative. EKG shows no acute signs of ischemia. Patient does not have any paresthesias or motor deficits while in the emergency department. No back pain. He has been having intermittent left-sided chest pain that he states radiates to his back, and he has had a couple episodes while in the emergency department. Chart was reviewed and shows that the patient had a myocardial perfusion scan on 09/21/18 here in our hospital that showed stress-induced ischemia involving a moderate segment of the anterior myocardium. He was evaluated by cardiology at that time and was recommended for cardiac catheterization. He declined at that time stating he would like to follow at the [facility] with this. He was unable to do so, so he returned. He will be admitted for further cardiac evaluation. Case discussed with hospitalist Dr. Arnold who will admit the patient to his service. Medical Screen Exam Complete: Yes Emergency Medical Condition: Yes Differential Diagnosis Differential Diagnosis: ACS, paresthesias, metabolic abnormality, Medical Records Medical records reviewed: Yes I reviewed the patient's medical records. Lab Data Result diagrams: 09/24/18 16:45 09/24/18 16:45 Lab Results 09/24/18 09/24/18 09/24/18 Range/Units 16:45 16:45 16:45 WBC 5.8 (4.0-11.0) th/mm3 RBC 4.67 (4.50-5.90) mil/mm3 Hgb 15.0 (13.0-17.0) gm/dL Hct 42.9 (39.0-51.0) % MCV 92.0 (80.0-100.0) fL MCH 32.2 (27.0-34.0) pg MCHC 35.0 (32.0-36.0) % RDW 14.1 (11.6-17.2) % Plt Count 151 (150-450) th/mm3 MPV 9.2 (7.0-11.0) fL Neut % (Auto) 50.5 (16.0-70.0) % Lymph % (Auto) 34.4 (9.0-44.0) % [place] % (Auto) 10.0 H (0.0-8.0) % Eos % (Auto) 4.5 H (0.0-4.0) % Baso % (Auto) 0.6 (0.0-2.0) % Neut # (Auto) 2.9 (1.8-7.7) th/mm3 Lymph # (Auto) 2.0 (1.0-4.8) th/mm3 [place] # (Auto) 0.6 (0.0-0.9) th/mm3 Eos # (Auto) 0.3 (0.0-0.4) th/mm3 Baso # (Auto) 0.0 (0.0-0.2) th/mm3 WBC Differential . Differential Comment Auto diff final PT 11.1 (9.8-11.6) sec INR 1.1 Ratio APTT 27.0 (23.4-31.7) sec Sodium 140 (136-145) meq/L Potassium 4.0 (3.5-5.1) meq/L Chloride 106 (98-107) meq/L Carbon Dioxide 28.7 (21.0-32.0) meq/L Anion Gap 5 (5-15) meq/L BUN 12 (7-18) mg/dL Creatinine 0.79 (0.60-1.30) mg/dL Estimated GFR Greater than 89 (>89) mL/min Random Glucose 86 (74-106) mg/dL Calcium 8.7 (8.5-10.1) mg/dL Total Bilirubin 1.4 H (0.2-1.0) mg/dL AST 24 (15-37) U/L ALT 32 (12-78) U/L Alkaline Phosphatase 75 (45-117) U/L Total Creatine Kinase 212 (39-308) U/L CK-MB (CK-2) 3.2 (0.5-3.6) ng/mL Troponin I Less than 0.02 L (0.02-0.05) ng/mL Total Protein 7.2 (6.4-8.2) g/dL Albumin 3.6 (3.4-5.0) g/dL Imaging Data Radiologist's impression: Chest X-Ray 09/24/18 17:41 CONCLUSION: Trace left base atelectasis. ECG Data Attestation: I personally reviewed and interpreted this ECG as follows: (Sinus, rate 67, borderline left axis deviation, normal intervals, no acute ischemic abnormalities.) Discharge Plan Discharge Disposition Patient Disposition: 30 Still Patient Discharge Condition Condition: Stable Discharge Details Diagnosis: Chest pain Physicians Team ED Provider: Olayinka Grady Primary Care Provider: [facility] /Orders / Referrals /Forms Prescriptions: No Action atorvastatin 40 mg Tablet 40 mg PO HS Qty: 30 RF: 0 aspirin 325 mg Tablet 325 mg PO DAILY Qty: 30 RF: 0 amlodipine [Norvasc] 5 mg Tablet 5 mg PO DAILY Qty: 30 RF: 0 metoprolol tartrate 25 mg Tablet 25 mg PO BID Qty: 60 RF: 0 nitroglycerin 0.4 mg Tablet, Sublingual 0.4 mg SUBLINGUAL Q5-15M PRN (Reason: Chest Pain) Qty: 100 RF: 0 Discharge Interventions Interventions: Vital Signs Last Done: 09/24/18 16:06 Status ED Status: With Doctor
--- NOTE | 2018-09-24 18:19 | XR ---
EXAM DATE: 09/24/2018 6:13 PM EST AGE/SEX: 68 years / Male INDICATIONS: Chest pain. CLINICAL DATA: This is the patient's initial encounter. Patient reports that signs and symptoms have been present for 1 day and indicates a pain score of 10/10. MEDICAL/SURGICAL HISTORY: Cardiovascular disease. None. COMPARISON: [facility], CHEST 1V SINGLE AP, 09/21/2018. . FINDINGS: There is trace left base atelectasis. Lungs are otherwise clear. No pleural effusion. No pneumothorax . Heart size stable, within normal limits. CONCLUSION: Trace left base atelectasis. Electronically signed by: Joshua Gallego MD 09/24/2018 6:18 PM EST
[2018-09-24 19:04] LABS: Baso % (Auto) 0.6 % (0.0-2.0); Eos # (Auto) 0.3 th/mm3 (0.0-0.4); Eos % (Auto) 4.5 % (0.0-4.0); Hematocrit 42.9 % (39.0-51.0); Lymph % (Auto) 34.4 % (9.0-44.0); Mean Corpuscular Hemoglobin 32.2 pg (27.0-34.0); Mean Platelet Volume 9.2 fL (7.0-11.0); Mono # (Auto) 0.6 th/mm3 (0.0-0.9); Neut # (Auto) 2.9 th/mm3 (1.8-7.7); Neut % (Auto) 50.5 % (16.0-70.0); Platelet Count 151 th/mm3 (150-450); Red Blood Count 4.67 mil/mm3 (4.50-5.90); Red Cell Distribution Width 14.1 % (11.6-17.2); White Blood Count 5.8 th/mm3 (4.0-11.0)
[2018-09-24 19:16] LABS: INR 1.1 Ratio; Prothrombin Time 11.1 sec (9.8-11.6)
[2018-09-24 19:23] LABS: Albumin 3.6 g/dL (3.4-5.0); Anion Gap 5 meq/L (5-15); Aspartate Aminotransferase 24 U/L (15-37); Blood Urea Nitrogen 12 mg/dL (7-18); Calcium 8.7 mg/dL (8.5-10.1); Carbon Dioxide 28.7 meq/L (21.0-32.0); Chloride 106 meq/L (98-107); Glomerular Filtration Rate Greater Than 89 mL/min (>89); Glucose,Random 86 mg/dL (74-106); Sodium 140 meq/L (136-145)
[2018-09-24 19:24] LABS: Alanine Aminotransferase 32 U/L (12-78)
[2018-09-24 19:27] LABS: Alkaline Phosphatase 75 U/L (45-117); Creatine Kinase 212 U/L (39-308); Total Protein 7.2 g/dL (6.4-8.2)
[2018-09-24 19:40] LABS: Creatine Kinase MB 3.2 ng/mL (0.5-3.6)
[2018-09-24] MEDS ORDERED: Bisacodyl 10 MG Supp RECTAL PRN (20:50)
[2018-09-24] MEDS: Sod Chloride 0.9% Inj 1,000 ML IV.CONT SCH (21:28)
[2018-09-24] MEDS: Metoprolol Tartrate 25 MG Tablet PO SCH (21:28)
--- NOTE | 2018-09-25 05:15 | ECG ---
Date Performed: 09/24/2018 Time Performed: 19:43:49 PTAGE: 68 years EKG: Sinus rhythm BORDERLINE LEFT AXIS DEVIATION BORDERLINE ECG No significant change from prior electrocardiogram. PREVIOUS TRACING : 09/21/2018 07.50 DOCTOR: Jan Palmer Interpretating Date/Time 09/25/2018 05:14:28
--- NOTE | 2018-09-25 08:00 | ECG ---
Date Performed: 09/25/2018 Time Performed: 02:45:22 PTAGE: 68 years EKG: Sinus bradycardia Leftward axis Low QRS voltages in limb leads Borderline ECG No significan t change from prior electrocardiogram. PREVIOUS TRACING : 09/24/2018 19.43 DOCTOR: Jan Palmer Interpretating Date/Time 09/25/2018 07:58:54
[2018-09-25] MEDS ORDERED: Aspirin 325 MG Tablet PO SCH (09:00)
[2018-09-25] MEDS: Metoprolol Tartrate 25 MG Tablet PO SCH ×2 (09:24→20:36)
[2018-09-25] MEDS: amLODIPine 5 MG Tablet PO SCH (09:26)
--- NOTE | 2018-09-25 10:43 | P.HP ---
History of Present Illness Primary Care Physician: [facility] History of Present Illness: 68-year-old white male who was admitted for concern for worsening coronary disease. Patient was instructed to proceed to the emergency department by his PCP after he was unable to secure a cardiac catheterization procedure [facility]. He was recently discharged from the hospital about 4 days ago with a recommendation for cardiac catheterization in light of a positive nuclear stress test but the patient opted to have this route pursued through his [facility] system. Reports having vague intermittent chest pains, but complains more of a chest fullness feeling. Denies any shortness of breath. Says he had some scattered intermittent right lower extremity numbness that will range from the toes up to the knee. Otherwise he denies any other acute ongoing symptoms. Patient says he does not take his aspirin every day. He says he takes half aspirin once in the morning and once at night. When I asked him if he is skeptical of medications, he says yes says that the reason is because he is worried about the side effects that he sees on commercials. Review of Systems All other systems reviewed negative except as stated in HPI PMFSH - History History Provided By: Patient - Medical History Medical History: Medical History (Last Reviewed 09/25/18 @ 10:42 by Audie Bowden MD) Hx of thyroid cyst - Surgical History Surgical History: Surgical History (Last Reviewed 09/25/18 @ 10:42 by Audie Bowden MD) Hx of cholecystectomy - Family History Family History: Family History (Last Updated 09/25/18 @ 10:42 by Audie Bowden MD) Other Heart attack - Social History I have reviewed the patient's Social History: Yes - Tobacco History Second Hand Smoke Exposure: No Tobacco Use In Past 30 Days: No Smoking Status: Former smoker Tobacco Type: Cigarettes - Alcohol History How Often Do You Have a Drink Containing Alcohol: 2 to 4 times a month - Substance Use History Substance History: No History of Abuse - Travel History Recent Travel in the [place] Within the Last 8 Weeks: No Recent Travel Out of the Country Within the Last 8 Weeks: No - Immunization History Tetanus Immunization: <5 Years Medications and Allergies Active Medications: Active Medications Al Hydroxide/Mg Hydroxide (Milk Of Magnesia Liq) 30 ml PO Q12H PRN PRN Reason: Mild Constipation Amlodipine Besylate (Norvasc) 5 mg PO DAILY [facility] Last Admin: 09/25/18 09:26 Dose: 5 mg Aspirin (Aspirin) 325 mg PO DAILY [facility] Last Admin: 09/25/18 09:26 Dose: 325 mg Atorvastatin Calcium (Lipitor) 40 mg PO HS [facility] Last Admin: 09/24/18 21:28 Dose: 40 mg Bisacodyl (Dulcolax Supp) 10 mg RECTAL DAILY PRN PRN Reason: SEVERE CONSITIPATION Sodium Chloride (Ns Inj) 1,000 mls @ 50 mls/hr IV.CONT .Q20H [facility] Last Admin: 09/24/18 21:28 Dose: 50 mls/hr Lactulose (Lactulose Liq) 30 ml PO DAILY PRN PRN Reason: SEVERE CONSITIPATION Metoprolol Tartrate (Lopressor) 25 mg PO BID [facility] Last Admin: 09/25/18 09:24 Dose: 25 mg Sennosides (Senokot) 17.2 mg PO Q12H PRN PRN Reason: Moderate Constipation Sodium Chloride (Ns Flush) 2 ml IV.FLUSH UNSCH PRN PRN Reason: FLUSH AFTER USING IV ACCESS Allergies Allergy/AdvReac Type Severity Reaction Status Date / Time No Known Allergies Allergy Verified 09/21/18 03:30 Exam Vital signs: Vital Signs 09/24/18 16:02 09/24/18 16:06 09/24/18 19:00 Temperature 98.6 F Pulse Rate 72 68 64 Respiratory Rate 16 18 16 Blood Pressure 151/79 H 163/67 H 175/100 H Pulse Oximetry 96 98 97 09/24/18 21:30 09/24/18 23:00 09/25/18 00:00 Temperature 98 F Pulse Rate 67 54 L 61 Respiratory Rate 16 20 Blood Pressure 160/88 H 131/96 H Pulse Oximetry 96 97 09/25/18 01:00 09/25/18 02:00 09/25/18 03:00 Temperature Pulse Rate 50 L 50 L 50 L Respiratory Rate Blood Pressure Pulse Oximetry 09/25/18 04:00 09/25/18 07:00 Temperature 97.8 F 97.9 F Pulse Rate 49 L 58 L Respiratory Rate 20 16 Blood Pressure 120/73 135/88 Pulse Oximetry 96 97 Intake & Output 09/24/18 09/25/18 09/25/18 18:59 06:59 18:59 Intake Total 240 / 240 Output Total 550 / 550 Balance -310 / -310 Weight 88.451 kg 86.6 kg Intake: Oral 240 / 240 Output: Urine 550 / 550 Other: Weight On Admission 85.5 kg Narrative: VS: afebrile GENERAL: Sitting up in bed, awake, alert, no acute distress SKIN: Warm and dry. EYES: No scleral icterus. No injection or drainage. ENT: No nasal bleeding or discharge. Mucous membranes pink and moist. CARDIOVASCULAR: Regular rate and rhythm. no murmurs RESPIRATORY: No accessory muscle use. Clear to auscultation. Breath sounds equal bilaterally. GASTROINTESTINAL: Abdomen soft; there is mild tenderness to palpation in the right upper quadrant upon very deep palpation, otherwise does not have any other tenderness, not distended Extremities: No clubbing, cyanosis, or edema. No obvious deformities. MUSCULOSKELETAL: adequate muscle bulk and tone for age and habitus NEUROLOGICAL: Awake and alert. No obvious cranial nerve deficits. No facial droop nor slurred speech noted. PSYCHIATRIC: Appropriate mood and affect; insight and judgment normal. Results - Labs CBC & Chem 7: 09/24/18 16:45 09/24/18 16:45 Labs: Laboratory Results - last 24 hr 09/24/18 09/24/18 09/24/18 16:45 16:45 16:45 WBC 5.8 RBC 4.67 Hgb 15.0 Hct 42.9 MCV 92.0 MCH 32.2 MCHC 35.0 RDW 14.1 Plt Count 151 MPV 9.2 Neut % (Auto) 50.5 Lymph % (Auto) 34.4 [place] % (Auto) 10.0 H Eos % (Auto) 4.5 H Baso % (Auto) 0.6 Neut # (Auto) 2.9 Lymph # (Auto) 2.0 [place] # (Auto) 0.6 Eos # (Auto) 0.3 Baso # (Auto) 0.0 WBC Differential . Differential Comment Auto diff final PT 11.1 INR 1.1 APTT 27.0 Sodium 140 Potassium 4.0 Chloride 106 Carbon Dioxide 28.7 Anion Gap 5 BUN 12 Creatinine 0.79 Estimated GFR Greater than 89 Random Glucose 86 Calcium 8.7 Total Bilirubin 1.4 H AST 24 ALT 32 Alkaline Phosphatase 75 Total Creatine Kinase 212 CK-MB (CK-2) 3.2 Troponin I Less than 0.02 L Total Protein 7.2 Albumin 3.6 09/24/18 09/25/18 23:32 07:58 WBC RBC Hgb Hct MCV MCH MCHC RDW Plt Count MPV Neut % (Auto) Lymph % (Auto) [place] % (Auto) Eos % (Auto) Baso % (Auto) Neut # (Auto) Lymph # (Auto) [place] # (Auto) Eos # (Auto) Baso # (Auto) WBC Differential Differential Comment PT INR APTT Sodium Potassium Chloride Carbon Dioxide Anion Gap BUN Creatinine Estimated GFR Random Glucose Calcium Total Bilirubin AST ALT Alkaline Phosphatase Total Creatine Kinase CK-MB (CK-2) Troponin I Less than 0.02 L Less than 0.02 L Total Protein Albumin - Imaging Impressions Chest X-Ray 09/24/18 17:41 CONCLUSION: Trace left base atelectasis. Caprini VTE Risk Assessment Caprini VTE Risk Assessment: Moderate/High Risk (score >= 2) Caprini Risk Assessment Model: Point Value = 1 Point Value = 2 Point Value = 3 Point Value = 5 Age 41-60 Minor surgery BMI > 25 kg/m2 Swollen legs Varicose veins or History of unexplained or recurrent spontaneous Oral contraceptives or hormone replacement Sepsis (< 1 month) Serious lung disease, including pneumonia (< 1 month) Abnormal pulmonary function Acute myocardial infarction Congestive heart failure (< 1 month) History of inflammatory bowel disease Medical patient at bed rest Age 61-74 Arthroscopic surgery Major open surgery (> 45 min) Laparoscopic surgery (> 45 min) Malignancy Confined to bed (> 72 hours) Immobilizing plaster cast Central venous access Age >= 75 History of VTE Family history of VTE Factor V Leiden Prothrombin [id number] Lupus anticoagulant Anticardiolipin antibodies Elevated serum homocysteine Heparin-induced thrombocytopenia Other congenital or acquired thrombophilia Stroke (< 1 month) Elective arthroplasty Hip, pelvis, or leg fracture Acute spinal cord injury (< 1 month) Prophylaxis Regimen: Total Risk Factor Score Risk Level Prophylaxis Regimen 0-1 Low Early ambulation 2 Moderate Order ONE of the following: *Sequential Compression Device (SCD) *Heparin 5000 units SQ BID 3-4 Higher Order ONE of the following medications: *Heparin 5000 units SQ TID *Enoxaparin/Lovenox 40 mg SQ daily (WT < 150 kg, CrCl > 30 mL/min) *Enoxaparin/Lovenox 30 mg SQ daily (WT < 150 kg, CrCl > 10-29 mL/min) *Enoxaparin/Lovenox 30 mg SQ BID (WT < 150 kg, CrCl > 30 mL/min) AND/OR *Sequential Compression Device (SCD) 5 or more Highest Order ONE of the following medications: *Heparin 5000 units SQ TID (Preferred with Epidurals) *Enoxaparin/Lovenox 40 mg SQ daily (WT < 150 kg, CrCl > 30 mL/min) *Enoxaparin/Lovenox 30 mg SQ daily (WT < 150 kg, CrCl > 10-29 mL/min) *Enoxaparin/Lovenox 30 mg SQ BID (WT < 150 kg, CrCl > 30 mL/min) AND *Sequential Compression Device (SCD) Assessment and Plan - Plan 68-year-old white male admitted for concern for worsening coronary disease. Recently had a stress test done 4 days ago and a prior hospitalization and was recommended cardiac catheterization but deferred it to have it worked up at a different practice/facility. Unable to do so, so he came back to our facility to complete cardiac workup. Suspected borderline occlusive/acute coronary disease HTN Cardiology consulted for possible cath -Continue aspirin, statin, beta-yamileth -amlodipine heparin Discharge Planning: anticipate cath tomorrow
[2018-09-25] MEDS ORDERED: Heparin - SQ 10,000 UNITS/ML Vial SQ SCH (14:00)
--- NOTE | 2018-09-25 16:57 | P.CODE44 ---
Code 44 - Inpatient to Obs - Code 44 - Inpatient to Obs Statement: A clinical review of the case has been conducted by a member of the Utilization Review Committee. The findings indicate the patient meets criteria for observation status. The information and decision has been discussed with the attending physician Audie Bowden MD and physician provider Omid Alfonso MD.
[2018-09-25] MEDS: Sod Chloride 0.9% Inj 1,000 ML IV.CONT SCH (17:05)
--- NOTE | 2018-09-25 20:28 | MB ---
cc: Figueroa Freeman DO DATE: 09/25/2018 REASON FOR CONSULTATION: Chest pain, abnormal stress test. HISTORY OF PRESENT ILLNESS: Suresh Burnette is a 68-year-old male who was previously here on 09/21/2018 for chest pain and underwent stress testing. During this, he was found to have an abnormal stress test with mid anterior wall ischemia of moderate size, which was read as a low risk study, but due to the size of the ischemia, would be a moderate risk study. At that time, I had talked to him about consideration of cardiac catheterization, but he was unsure if he would undergo the procedure and whether he would want to have a stent done or bypass. He also was unsure about taking the medications. He went home and discussed this with the CT, who said that he would need to have this done at [facility] outside of [place], and he was still unsure about it. He spoke with his primary care physician who suggested that he should undergo the procedure and take the medications as directed. Because he continued to have chest pain, he came into the emergency room. In seeing him, he is currently hemodynamically stable without chest pain or shortness of breath. PAST MEDICAL HISTORY: 1. Hypertension. 2. Hyperlipidemia. 3. Thyroid cyst. PAST SURGICAL HISTORY: Cholecystectomy. ALLERGIES: NO KNOWN DRUG ALLERGIES. MEDICATIONS: 1. Norvasc 5 mg daily. 2. Aspirin 325 mg daily. 3. Lipitor 40 mg every night. 4. Nitro sublingual as needed. 5. Metoprolol tartrate 25 mg b.i.d. FAMILY HISTORY: Father at the age of 55 due to an MS. SOCIAL HISTORY: The patient is a former smoker. He denies alcohol or drug abuse. REVIEW OF SYSTEMS: Fourteen systems were reviewed including osteopathic. Pertinent positives and negatives above, otherwise negative. PHYSICAL EXAMINATION: VITAL SIGNS: Temperature 98.0, heart rate 54, blood pressure 130/73, respirations 16, pulse oximetry 95% on room air. GENERAL: The patient appears well, in no acute distress, alert, awake and oriented x 3. HEENT: Extraocular muscles intact. Mucous membranes moist. NECK: Supple. No JVD at 45 degrees. No carotid bruits heard bilaterally. Carotid upstroke is brisk in nature. HEART: Regular rate and rhythm. Positive first and second heart sounds with no noted murmurs, gallops or rubs. LUNGS: Clear to auscultation bilaterally, no wheezes, rales or rhonchi. ABDOMEN: Soft, nontender, nondistended, no organomegaly noted. EXTREMITIES: Show no clubbing, cyanosis or edema. Femoral and distal pulses intact bilaterally. NEUROLOGIC: No focal deficits. SKIN: Warm, dry and intact. OSTEOPATHIC: No kyphoscoliosis, lordosis or paraspinal tender points. LABORATORY DATA: Hemoglobin 15.0, hematocrit 42.9, platelets 151. Potassium 4.0, BUN 12, creatinine 0.79. Troponin negative x 3. Electrocardiogram (09/25/2018 at 0245): Sinus bradycardia, left axis, low QRS voltage in limb leads. IMPRESSIONS: 1. Chest pain, atypical for coronary insufficiency. 2. Abnormal stress test showing moderate ischemia of the anterior wall (intermediate risk stress test). 3. Hypertension. 4. Hyperlipidemia. 5. Premature coronary artery disease within the family. RECOMMENDATIONS: 1. Mr. Burnette continues to have chest pain while on multiple antianginals. 2. I had a long discussion with him and his about undergoing cardiac catheterization and he now has decided that he would undergo it. 3. He is taking the medication since being discharged and is willing to take medications afterwards. I had a long discussion with him about placing a drug-eluting stent versus a bare metal stent and he is willing to take his dual antiplatelet therapy for at least 12 months. 4. He will be n.p.o. after breakfast with a plan for cardiac catheterization in the afternoon. 5. Risks, benefits, and alternatives were discussed with him and he consents. Thank you for allowing me to see Suresh Burnette. If there are any questions, please do not hesitate to call. DO GORDON Everett/beny , 06:25 PM , 06:39 PM
[2018-09-25] MEDS: Heparin - SQ 10,000 UNITS/ML Vial SQ SCH (20:37)
[2018-09-26] MEDS: Heparin - SQ 10,000 UNITS/ML Vial SQ SCH ×2 (09:29→20:54)
[2018-09-26] MEDS: Metoprolol Tartrate 25 MG Tablet PO SCH ×2 (09:30→20:54)
[2018-09-26] MEDS: amLODIPine 5 MG Tablet PO SCH (09:31)
[2018-09-26] MEDS: Sod Chloride 0.9% Inj 1,000 ML IV.CONT SCH ×2 (11:58→15:20)
[2018-09-26] MEDS ORDERED: Lidocaine PF 1% Inj 30 ML Vial ONE (16:37)
[2018-09-26] MEDS ORDERED: Heparin/NS PF Inj 1,000 ML ONE (16:38)
[2018-09-26] MEDS ORDERED: Heparin 10,000 UNITS/10 ML Vial (for IV use) ONE (16:38)
[2018-09-26] MEDS ORDERED: fentaNYL Citrate Inj 100 MCG/2 ML Ampul ONE (16:41)
--- NOTE | 2018-09-26 17:41 | CATHPROC ---
[employer] HIS Report Study Information Study Number Admission Scheduled Start Study Start [id number] Sep 24 2018 8:35PM 09/26/2018 Sep 26 2018 4:34PM [place] [facility] Cardiac Catheterization Admit Source Facility Department Emergency department [facility] - [facility] Physician and Clinical Staff Initial Figueroa Parker Rn Telehealth Janeth Mchugh,DAFNE Rn TelehealthCaitlin Zaidi RN Other cathlab, cathlab Recorder Sami Garcia RCIS(BS) Blanka Ponce RCIS TECHAbiola Procedures Performed Procedure Location (Site) Vessel Name Coronary Angiograms LCA Left Coronary Coronary Angiograms RCA Right Coronary L Heart Cath Equipment Time Shop And Alteration Tailor Description Size Mfg Part Number Used/Scraped TRANSDUCER, TRUWAVE [id number] 16:48 REGAN NICHOLAS * Used W/STOCKCOCK *[id number] *[id number] *[id number] 16:48 ChemiSense BLANKET,WARM AIR CCL * Used *[id number] 16:48 [employer]iSense PACK, CCL CUSTOM * Used *[id number] 16:48 ChemiSense SUPPORT, ARTERIAL ADULT [id number] *[id number] Used BAND, RADIAL COMPRESSION TR [id number] 17:24 [employer]On MEDICAL 24CM Used SHORT 24 *[id number] 16:48 Fluid Stone WIRE, EXCHANGE 260CM 3MMJ 260CM Used *[id number] 16:48 NAMIC MANIFOLD, 4 PORT * Used *[id number] 16:48 NYCOMED OMNIPAQUE, 350 MG, 150ML 150ML [id number] Used SHEATH, FR6 TRANSRADIAL [id number] 16:48 [employer] MEDICAL FR 6 Used SLENDER 10CM *[id number] History: Current Medications Medication Dosage/Unit Route Frequency Last Date/Time Taken ASA LISINOPRIL Beta Ruben History: Allergies Allergy Reaction No Known Allergies History: Risk Factors Family History of Hypertension Dyslipidemia Previous VT Previous Heart Failure Premature CAD Yes Yes No No No Prior Valve Prior PCI Prior CABG Surgery No No No Cerebrovascular Peripheral Artery Chronic Lung On Dialysis Diabetes Disease Disease Disease No Yes No No No History: Symptoms/Diagnosis Selection Items Chest pain History: Stress Tests Stress or Imaging Studies Performed Yes Standard Exercise Stress Test No Stress Echo No Stress Test SPECT Stress Test SPECT Result Stress Test SPECT Ischemia Risk/Extent Yes Positive Intermediate Stress Test CMR No Cardiac CTA Coronary Calcium Score No No History: Other Current Smoker No Labs Hgb (g/dl) Hct (%) WBC (l/cumm) Platelets (thousands) 11.60-17.00 35.00-51.00 4.00-11.00 150.00-450.00 15.0 42.9 5.8 151 Glucose (mg/dl) BUN (mg/dl) Creatinine (mg/dl) BUN:Creatinine (1:x) 74.00-106.00 7.00-18.00 0.50-1.30 10.00-20.00 86 12 0.7 17.1 Na (meq/l) K (meq/l) 136.00-145.00 3.50-5.10 140 4 INR (PTT:PT) 0.90-1.10 1.1 Medication Medication Total Dose (Bolus/Oral) Medication Total Dosage/Unit 1% XYLOCAINE 2 mL FENTANYL 50 mcg RADIAL COCKTAIL 5 mL (Bolus) VERSED 1 mg Medications (Bolus/Oral) Medication Time Given Dosage/Unit Administered By Reason VERSED 09/26/2018 5:05:07 PM 1 mg Janeth Mchugh 1 mg VERSED given in lab by Janeth Mchugh RN in Left Antecubital via Peripheral IV. Ordered by Pet Figueroa sagastume. FENTANYL 09/26/2018 5:06:12 PM 50 mcg Janeth Mchugh 50 mcg FENTANYL given in lab by Janeth Mchugh, DAFNE in Left Antecubital via Peripheral IV. Ordered by Figueroa Freeman. 1% XYLOCAINE 09/26/2018 5:11:56 PM 2 mL Figueroa Freeman 2 mL 1% XYLOCAINE given in lab by Figueroa Freeman in Right Radial via Subcutaneous. Ntg 200mcg Verapamil 2.5mg Heparin RADIAL COCKTAIL 09/26/2018 5:12:37 PM 5 mL (Bolus) Figueroa Freeman 2000U 5 mL (Bolus) RADIAL COCKTAIL given in lab by Figueroa Freeman via Radial. Using [Solution Name]. R shorty: Ntg 200g Heparin 3500U. Medication (Drip) Medication Time Given Dosage/Unit Concentration/Unit Diluent (ml) Solution IV Solutions 09/26/2018 4:34:52 PM 0 mL (IV) 500 NaCl .9 Patient arrived on IV Solutions given by cathlab, cathlab in Right Radial via Peripheral IV. Pump/Dri p Flow = 20 ml/hr using NaCl .9. Ordered by Figueroa Freeman Initial Case Assessment Cardiovascular HR Rhythm NIBP Chest Pain 57 sbrady 157/87 0 Edema Present Skin color Skin None Normal Warm Dry Circulatory - Right Pulses Dorsalis Pedis Femoral Radial 2 2 2 Scale (0,1,2,3,4,d) Scale (0,1,2,3,4,d) Neurological State Oriented to time-place- Alert Moves all extremities person Respiration - General Respiration Rate SpO2 (%) (B/min) 15 97 Final Case Assessment Cardiovascular HR Rhythm NIBP Chest Pain 60 sinus 129/77 0 Edema Present Skin color Skin None Normal Warm Dry Circulatory - Right Pulses Dorsalis Pedis Femoral Radial 2 2 2 Scale (0,1,2,3,4,d) Scale (0,1,2,3,4,d) Neurological State Oriented to time-place- Alert Moves all extremities person Respiration - General Respiration Rate SpO2 (%) (B/min) 15 97 Chronological Log Time Study Chronological Log 16:34:28 Patient arrived via Bed. 16:34:28 Patient Name, D.O.B, / Armband Verified By R.N. 16:34:32 Consent signed by the physician and the patient and verified by the [facility] staff. 16:34:33 Pre-op and post- op instructions given; patient acknowledges understanding of instructions. 16:34:34 Presedation assessment performed by [facility] RN. 16:34:35 Allens test performed on the right radial and ulnar artery. POSITIVE. 16:34:40 Immediate Presedation assesment performed by physician. 16:34:41 Patient has been NPO for More than 6Hrs. 16:34:41 Skin Breakdown- none per patient 16:34:49 Patient Warmer Placed on the Table. 16:34:51 Elizabeth Prominences Protected 16:34:51 A # 20 IV was noted in the Radial (right). Grade = 0 16:34:52 A # 20 IV was noted in the Antecubital (left). Grade = 0 Patient arrived on IV Solutions given by cathlab, cathlab in Right Radial via Peripheral IV. Pu mp/Drip Flow = 20 ml/hr 16:34:52 using NaCl .9. Ordered by Figueroa Freeman 16:34:53 History and physical on the chart or being dictated. Vitals capture started with the following parameters, Patient=Adult, Interval=5 min, Initial Pr sgqyto=157 mmHg, 16:39:29 Deflation Rate=5 mmHg, Cuff placed on Left Arm 16:40:10 HR=62 bpm, MKBZ=067/90 mmhg, SpO2=97.0 %, Resp=15 B/min, Pain=0, Temitope=10, Rhodes=2 16:45:01 MD arrived. 16:45:02 Immediate Presedation assesment performed by physician. 16:45:11 HR=60 bpm, GFCR=743/82 mmhg, SpO2=98.0 %, Resp=19 B/min, Pain=0, Temitope=10, Rhodes=2 16:49:07 Right Radial and groin(s) prepped with 2% chlorhexidine, and draped after a 3 min. waiting time. 16:49:22 Reference ECG taken Assessment: Initial Case, HR=57 BPM, Rhythm=sbrady, JHNF=907/87 mmhg, Chest Pain=0, Edema=None, Color=Normal, Skin = Warm, Dry 16:49:32 Right Pulses: Zander Ped=2, Femoral=2, Radial=2 Neurological: State=Alert, Ox3, HELM Respiration: Resp=15 B/min, SpO2=97 % 16:50:08 HR=59 bpm, XRXB=168/87 mmhg, SpO2=96.0 %, Resp=18 B/min, Pain=0, Temitope=10, Rhodes=2 16:55:13 HR=61 bpm, BPSI=832/82 mmhg, SpO2=98.0 %, Resp=14 B/min, Pain=0, Temitope=10, Rhodes=2 16:57:24 Pressure channel 1 zeroed. 17:00:10 HR=62 bpm, MNZA=036/87 mmhg, SpO2=97.0 %, Resp=19 B/min, Pain=0, Temitope=10, Rhodes=2 17:05:05 HR=64 bpm, YWWZ=174/88 mmhg, SpO2=98.0 %, Resp=9 B/min, Pain=0, Temitope=10, Rhodes=2 17:05:07 1 mg VERSED given in lab by Janeth Mchugh, DAFNE in Left Antecubital via Peripheral IV. Orde red by Figueroa Freeman 50 mcg FENTANYL given in lab by Janeth Mchugh, DAFNE in Left Antecubital via Peripheral IV. Orde red by Pete, 17:06:12 Figueroa Mills. 17:10:02 HR=60 bpm, RRMS=067/76 mmhg, SpO2=94.0 %, Resp=15 B/min, Pain=0, Temitope=10, Rhodes=2 17:10:24 Contrast Scanned Time Out. Correct patient, correct procedure, correct physician, labs, allergies, and equipment verified with cath lab manager 17:11:01 team present. Fire risk assesment completed (see hard stop sheet for coding). Time Out Conc urred by MD and individual staff in procedure. 17:11:55 Case Start 17:11:56 2 mL 1% XYLOCAINE given in lab by Figueroa Freeman in Right Radial via Subcutaneous. 17:12:18 Access site was Right Radial Artery . A SHEATH, FR6 TRANSRADIAL SLENDER 10CM FR 6 was advanced into the Radial (right) using the Perc utaneous 17:12:27 technique. 5 mL (Bolus) RADIAL COCKTAIL given in lab by Figueroa Freeman via Radial. Using [Solution Na me]. Reason: Ntg 17:12:37 200g Heparin 3500U. A JR 4.0 INFINITI CATHETER FR 5 was advanced over a wire. OMNIPAQUE, 350 MG, 150ML 150ML was us ed for 17:12:51 injections. Recorded Pressure: LV, HR=60, Condition=Condition 1 17:15:04 (Left Ventricle) LV 104/-1/5 17:15:09 HR=59 bpm, SXBI=275/66 mmhg, SpO2=93.0 %, Resp=14 B/min, Pain=0, Temitope=10, Rhodes=2 Recorded Pressure: LV, Ao, HR=65, Condition=Condition 1 17:15:24 (Left Ventricle) LV 108/-2/4, (Aorta) Ao 104/66/83 Recorded Pressure: Ao, HR=65, Condition=Condition 1 17:15:33 (Aorta) Ao 104/65/83 17:15:40 Catheter was removed 17:15:42 The RCA was injected and visualized at various angles. OMNIPAQUE, 350 MG, 150ML 150ML used . After removing the current catheter a JL 3.5 INFINITI CATHETER FR 5 was advanced over a WIRE, E XCHANGE 260CM 17:16:49 3MMJ 260CM. 17:19:09 The LCA was injected and visualized at various angles. OMNIPAQUE, 350 MG, 150ML 150ML used . 17:20:08 HR=63 bpm, PZBJ=418/64 mmhg, SpO2=92.0 %, Resp=17 B/min, Pain=0, Temitope=10, Rhodes=2 17:24:22 Catheter was removed 17:25:07 HR=61 bpm, RNSL=224/77 mmhg, SpO2=94.0 %, Resp=26 B/min, Pain=0, Temitope=10, Rhodes=2 17:25:12 Case End (Physician broke scrub) Assessment: Final Case, HR=60 BPM, Rhythm=sinus, UMME=820/77 mmhg, Chest Pain=0, Edema=None, Color=Normal, Skin = Warm, Dry 17:25:17 Right Pulses: Zander Ped=2, Femoral=2, Radial=2 Neurological: State=Alert, Ox3, HELM Respiration: Resp=15 B/min, SpO2=97 % 17:25:35 Catheter(s) removed without difficulty Radial Compression Device Used. 10 mLs of air placed in BAND, RADIAL COMPRESSION TR SHORT 24 24 CM. Affected 17:25:36 hand 95 % O2 saturation. 17:27:41 Sterile dressing applied to site 17:27:41 No case complications noted. 17:27:42 Cine recording checked. 17:27:45 Bedside Report will be given. 17:27:48 A Left Heart Cath was performed. 17:30:10 HR=60 bpm, JZYC=587/79 mmhg, SpO2=94.0 %, Resp=19 B/min, Pain=0, Temitope=10, Rhodes=2 17:35:09 HR=62 bpm, XNEH=074/77 mmhg, SpO2=96.0 %, Resp=10 B/min, Pain=0, Temitope=10, Rhodes=2 17:40:29 Patient moved to stretcher End Study - Contrast Media Used In Study Contrast Total Opened (mL) Total Used (mL) Total Wasted (mL) Omnipaque 25 25 0 End Study - Maximum Contrast Load Max Contrast Load (mL) 632.1 End Study - Radiation Exposure Fluoro Time (minutes) 2.1 End Study - Patient Disposition Complications Transferred To Interventional Outcome No Telemetry Bed No attempt made
[2018-09-26] MEDS ORDERED: Iohexol 350 MG/ML 50 ML Vial (for Cath Lab) IVCONTRAST ONE (20:36)
--- NOTE | 2018-09-26 21:14 | P.PN ---
Subjective Interval history: RN denies any acute changes o/n. Pt denies any chest pain. Physical Exam Vital signs: Vital Signs 09/25/18 22:00 09/25/18 23:00 09/26/18 00:00 Temperature 97.5 F L Pulse Rate 60 59 L 53 L Respiratory Rate 18 Blood Pressure 130/83 Pulse Oximetry 97 09/26/18 01:00 09/26/18 02:00 09/26/18 03:00 Temperature 97.5 F L Pulse Rate 50 L 54 L 51 L Respiratory Rate 18 Blood Pressure 143/84 H Pulse Oximetry 95 09/26/18 04:00 09/26/18 05:00 09/26/18 06:00 Temperature Pulse Rate 53 L 55 L 57 L Respiratory Rate Blood Pressure Pulse Oximetry 09/26/18 07:00 09/26/18 07:58 09/26/18 09:00 Temperature 98.4 F Pulse Rate 60 60 72 Respiratory Rate 20 Blood Pressure 141/85 H Pulse Oximetry 98 09/26/18 10:00 09/26/18 11:00 09/26/18 12:00 Temperature Pulse Rate 60 62 60 Respiratory Rate 20 Blood Pressure Pulse Oximetry 98 09/26/18 12:06 09/26/18 13:00 09/26/18 14:00 Temperature Pulse Rate 60 60 52 L Respiratory Rate Blood Pressure Pulse Oximetry 09/26/18 15:00 09/26/18 16:00 09/26/18 16:06 Temperature Pulse Rate 62 66 64 Respiratory Rate 18 Blood Pressure 138/88 Pulse Oximetry 98 09/26/18 17:00 09/26/18 18:00 Temperature Pulse Rate 60 64 Respiratory Rate Blood Pressure Pulse Oximetry Intake & Output 09/26/18 09/26/18 09/27/18 06:59 18:59 06:59 Intake Total 240 / 240 1000 / 1000 Output Total 1825 / 1825 550 / 550 Balance -1585 / -1585 450 / 450 Weight 85.5 kg Intake: IV 1000 / 1000 NS Inj 1,000 ML @ 50 mls/hr IV. 1000 / 1000 CONT .Q20H [facility] Rx#:[id number] Oral 240 / 240 0 / 0 Output: Urine 1825 / 1825 550 / 550 Other: Date of Last Bowel Movement 09/23/18 Narrative: hrt sounds rrr, no murmurs clear lungs, unlabored breathing no LE edema Results - Labs CBC & Chem 7: 09/27/18 05:51 09/27/18 05:51 Assessment and Plan - Plan 68-year-old white male admitted for concern for worsening coronary disease. Recently had a stress test done 4 days ago and a prior hospitalization and was recommended cardiac catheterization but deferred it to have it worked up at a different practice/facility. Unable to do so, so he came back to our facility to complete cardiac workup. Suspected borderline occlusive/acute coronary disease HTN cath planned for today -Continue aspirin, statin, beta-yamileth -amlodipine heparin Discharge Planning: anticipate cath today
--- NOTE | 2018-09-26 22:41 | P.PNCA ---
Subjective Interval history: No events overnight s/p cath with no lesions for intervention No chest pain Medications and Allergies Active Medications: Active Medications Al Hydroxide/Mg Hydroxide (Milk Of Magnesia Liq) 30 ml PO Q12H PRN PRN Reason: Mild Constipation Amlodipine Besylate (Norvasc) 5 mg PO DAILY [facility] Last Admin: 09/26/18 09:31 Dose: 5 mg Aspirin (Ecotrin) 81 mg PO DAILY [facility] Last Admin: 09/26/18 09:30 Dose: 81 mg Atorvastatin Calcium (Lipitor) 40 mg PO HS [facility] Last Admin: 09/26/18 20:53 Dose: 40 mg Bisacodyl (Dulcolax Supp) 10 mg RECTAL DAILY PRN PRN Reason: SEVERE CONSITIPATION Heparin Sodium (Porcine) (Heparin Inj) 5,000 units SQ Q12HR [facility] Last Admin: 09/26/18 20:54 Dose: Not Given Sodium Chloride (Ns Inj) 1,000 mls @ 50 mls/hr IV.CONT .Q20H [facility] Last Admin: 09/26/18 15:20 Dose: Not Given Lactulose (Lactulose Liq) 30 ml PO DAILY PRN PRN Reason: SEVERE CONSITIPATION Metoprolol Tartrate (Lopressor) 25 mg PO BID [facility] Last Admin: 09/26/18 20:54 Dose: Not Given Sennosides (Senokot) 17.2 mg PO Q12H PRN PRN Reason: Moderate Constipation Sodium Chloride (Ns Flush) 2 ml IV.FLUSH UNSCH PRN PRN Reason: FLUSH AFTER USING IV ACCESS Sodium Chloride (Ns Flush) 2 ml IV.FLUSH BID [facility] Last Admin: 09/26/18 20:54 Dose: Not Given Sodium Chloride (Ns Flush) 2 ml IV.FLUSH PRN PRN PRN Reason: FLUSH AFTER USING IV ACCESS Allergies Allergy/AdvReac Type Severity Reaction Status Date / Time No Known Allergies Allergy Verified 09/21/18 03:30 Physical Exam Vital signs: Vital Signs 09/25/18 23:00 09/26/18 00:00 09/26/18 01:00 Temperature 97.5 F L Pulse Rate 59 L 53 L 50 L Respiratory Rate 18 Blood Pressure 130/83 Pulse Oximetry 97 09/26/18 02:00 09/26/18 03:00 09/26/18 04:00 Temperature 97.5 F L Pulse Rate 54 L 51 L 53 L Respiratory Rate 18 Blood Pressure 143/84 H Pulse Oximetry 95 09/26/18 05:00 09/26/18 06:00 09/26/18 07:00 Temperature 98.4 F Pulse Rate 55 L 57 L 60 Respiratory Rate 20 Blood Pressure 141/85 H Pulse Oximetry 98 09/26/18 07:58 09/26/18 09:00 09/26/18 10:00 Temperature Pulse Rate 60 72 60 Respiratory Rate Blood Pressure Pulse Oximetry 09/26/18 11:00 09/26/18 12:00 09/26/18 12:06 Temperature Pulse Rate 62 60 60 Respiratory Rate 20 Blood Pressure Pulse Oximetry 98 09/26/18 13:00 09/26/18 14:00 09/26/18 15:00 Temperature Pulse Rate 60 52 L 62 Respiratory Rate 18 Blood Pressure 138/88 Pulse Oximetry 98 09/26/18 16:00 09/26/18 16:06 09/26/18 17:00 Temperature Pulse Rate 66 64 60 Respiratory Rate Blood Pressure Pulse Oximetry 09/26/18 18:00 09/26/18 19:00 Temperature 97.1 F L Pulse Rate 64 57 L Respiratory Rate 18 Blood Pressure 122/77 Pulse Oximetry 96 Intake & Output 09/26/18 09/26/18 09/27/18 06:59 18:59 06:59 Intake Total 240 / 240 1000 / 1000 Output Total 1825 / 1825 550 / 550 Balance -1585 / -1585 450 / 450 Weight 85.5 kg Intake: IV 1000 / 1000 NS Inj 1,000 ML @ 50 mls/hr IV. 1000 / 1000 CONT .Q20H [facility] Rx#:[id number] Oral 240 / 240 0 / 0 Output: Urine 1825 / 1825 550 / 550 Other: Date of Last Bowel Movement 09/23/18 09/23/18 Narrative: GENERAL: NAD, AAOx3 SKIN: Warm and dry. HEAD: Atraumatic. Normocephalic. EYES: Pupils equal and round. No scleral icterus. No injection or drainage. ENT: No nasal bleeding or discharge. Mucous membranes pink and moist. NECK: Trachea midline. No JVD. CARDIOVASCULAR: Regular rate and rhythm. RESPIRATORY: No accessory muscle use. Clear to auscultation. Breath sounds equal bilaterally. GASTROINTESTINAL: Abdomen soft, non-tender, nondistended. Hepatic and splenic margins not palpable. MUSCULOSKELETAL: Extremities without clubbing, cyanosis, or edema. No obvious deformities. NEUROLOGICAL: Awake and alert. No obvious cranial nerve deficits. Motor grossly within normal limits. Five out of 5 muscle strength in the arms and legs. Normal speech. PSYCHIATRIC: Appropriate mood and affect; insight and judgment normal. Results 09/24/18 16:45 09/24/18 16:45 Cardiac Enzymes 09/24/18 09/25/18 Range/Units 23:32 07:58 Troponin I Less than 0.02 L Less than 0.02 L (0.02-0.05) ng/mL Intake and Output 09/26/18 09/26/18 09/26/18 06:59 14:59 22:59 Intake Total 240 / 240 1000 / 1000 0 / 0 Output Total 1825 / 1825 550 / 550 Balance -1585 / -1585 1000 / 1000 -550 / -550 Intake: IV 1000 / 1000 NS Inj 1,000 ML @ 50 mls/hr IV. 1000 / 1000 CONT .Q20H [facility] Rx#:[id number] Oral 240 / 240 0 / 0 Output: Urine 1825 / 1825 550 / 550 Other: Date of Last Bowel Movement 09/23/18 09/23/18 Weight 85.5 kg Assessment and Plan - Assessment (1) Abnormal stress test Code(s): R94.39 - Abnormal result of other cardiovascular function study Status: Acute (2) Chest pain Code(s): R07.9 - Chest pain, unspecified Status: Acute (3) Hyperlipidemia Code(s): E78.5 - Hyperlipidemia, unspecified Status: Acute - Plan 1) Chest pain/Abnormal stress test s/p cath Occluded small diagonal, appears old with collaterals Myocardial bridging of ramus branch Con't medical management with BB/CCB 2) Plan to watch overnight and if stable discharge home in the morning (2) Chest pain Qualifiers: Chest pain type: unspecified Qualified Code(s): R07.9 - Chest pain, unspecified
[2018-09-27 07:22] LABS: Baso % (Auto) 0.6 % (0.0-2.0); Eos # (Auto) 0.4 th/mm3 (0.0-0.4); Eos % (Auto) 6.4 % (0.0-4.0); Hematocrit 43.7 % (39.0-51.0); Hemoglobin 14.9 gm/dL (13.0-17.0); Lymph # (Auto) 1.7 th/mm3 (1.0-4.8); Lymph % (Auto) 28.4 % (9.0-44.0); Mean Corpuscular HGB Conc 34.1 % (32.0-36.0); Mean Corpuscular Hemoglobin 31.6 pg (27.0-34.0); Mean Corpuscular Volume 92.7 fL (80.0-100.0); Mean Platelet Volume 9.7 fL (7.0-11.0); Mono # (Auto) 0.6 th/mm3 (0.0-0.9); Mono % (Auto) 9.4 % (0.0-8.0); Neut # (Auto) 3.4 th/mm3 (1.8-7.7); Neut % (Auto) 55.2 % (16.0-70.0); Platelet Count 142 th/mm3 (150-450); Red Blood Count 4.71 mil/mm3 (4.50-5.90); Red Cell Distribution Width 14.3 % (11.6-17.2); White Blood Count 6.1 th/mm3 (4.0-11.0)
[2018-09-27 07:51] LABS: Anion Gap 9 meq/L (5-15); Blood Urea Nitrogen 18 mg/dL (7-18); Calcium 8.7 mg/dL (8.5-10.1); Carbon Dioxide 28.2 meq/L (21.0-32.0); Chloride 104 meq/L (98-107); Glomerular Filtration Rate Greater Than 89 mL/min (>89); Glucose,Random 80 mg/dL (74-106); Potassium 3.7 meq/L (3.5-5.1); Sodium 141 meq/L (136-145)
[2018-09-27 08:17] VITALS: BP 136/80; RESP 20; TEMP 97.7; O2SAT 97
--- NOTE | 2018-09-27 08:38 | P.DS ---
Date of admission: 09/24/18 20:35 Primary care physician: Physician 's [facility] Brief History from admission: 68-year-old white male who was admitted for concern for worsening coronary disease. Patient was instructed to proceed to the emergency department by his PCP after he was unable to secure a cardiac catheterization procedure through [facility]. He was recently discharged from the hospital about 4 days ago with a recommendation for cardiac catheterization in light of a positive nuclear stress test but the patient opted to have this route pursued through his [facility] system. Reports having vague intermittent chest pains, but complains more of a chest fullness feeling. Denies any shortness of breath. Says he had some scattered intermittent right lower extremity numbness that will range from the toes up to the knee. Otherwise he denies any other acute ongoing symptoms. Patient says he does not take his aspirin every day. He says he takes half aspirin once in the morning and once at night. When I asked him if he is skeptical of medications, he says yes says that the reason is because he is worried about the side effects that he sees on commercials. DS: Medications - Discharge Medications Prescriptions: metoprolol tartrate 12.5 mg PO BID #30 tab DS: Summary Hospital Course: Patient was admitted, underwent cardiac catheterization with no significant occlusive disease worth of stenting or angioplasty. Overall remained hemodynamically stable. Patient has met maximal benefit from hospitalization is clinically stable for discharge. - Time Spent with Patient Total time spent providing and/or coordinating discharge services: Less than 30 minutes - Quality: VTE Deep Vein Thrombosis/Pulmonary Embolism Present on Admission: No Exam Vital signs: Vital Signs 09/26/18 09:00 09/26/18 10:00 09/26/18 11:00 Temperature Pulse Rate 72 60 62 Respiratory Rate 20 Blood Pressure Pulse Oximetry 98 09/26/18 12:00 09/26/18 12:06 09/26/18 13:00 Temperature Pulse Rate 60 60 60 Respiratory Rate Blood Pressure Pulse Oximetry 09/26/18 14:00 09/26/18 15:00 09/26/18 16:00 Temperature Pulse Rate 52 L 62 66 Respiratory Rate 18 Blood Pressure 138/88 Pulse Oximetry 98 09/26/18 16:06 09/26/18 17:00 09/26/18 18:00 Temperature Pulse Rate 64 60 64 Respiratory Rate Blood Pressure Pulse Oximetry 09/26/18 19:00 09/26/18 20:00 09/26/18 21:00 Temperature 97.1 F L Pulse Rate 71 68 54 L Respiratory Rate 18 Blood Pressure 122/77 Pulse Oximetry 96 09/26/18 22:00 09/26/18 23:00 09/27/18 00:00 Temperature 97.8 F Pulse Rate 56 L 55 L 54 L Respiratory Rate 18 Blood Pressure 108/65 Pulse Oximetry 94 L 09/27/18 01:00 09/27/18 02:00 09/27/18 03:00 Temperature 97.4 F L Pulse Rate 56 L 57 L 57 L Respiratory Rate 18 Blood Pressure 103/73 Pulse Oximetry 94 L 09/27/18 04:00 09/27/18 05:00 09/27/18 06:00 Temperature Pulse Rate 60 65 60 Respiratory Rate Blood Pressure Pulse Oximetry 09/27/18 07:00 09/27/18 08:00 Temperature 97.7 F Pulse Rate 58 L 50 L Respiratory Rate 20 Blood Pressure 136/80 Pulse Oximetry 97 Intake & Output 09/26/18 09/27/18 09/27/18 18:59 06:59 18:59 Intake Total 1000 / 1000 480 / 480 Output Total 550 / 550 450 / 450 Balance 450 / 450 30 / 30 Weight 86 kg Intake: IV 1000 / 1000 NS Inj 1,000 ML @ 50 mls/hr IV. 1000 / 1000 CONT .Q20H [facility] Rx#:[id number] Oral 0 / 0 480 / 480 Output: Urine 550 / 550 450 / 450 Other: # Voids 2 Date of Last Bowel Movement 09/23/18 09/23/18 Narrative: Heart sounds regular rate rhythm no murmurs Clear lungs bilaterally, unlabored breathing Right wrist post procedure splint Results Procedures completed during hospitalization: Cardiac catheterization Labs on day of discharge: Labs from last 24 hours 09/27/18 09/27/18 05:51 05:51 WBC 6.1 RBC 4.71 Hgb 14.9 Hct 43.7 MCV 92.7 MCH 31.6 MCHC 34.1 RDW 14.3 Plt Count 142 L MPV 9.7 Neut % (Auto) 55.2 Lymph % (Auto) 28.4 Dolores % (Auto) 9.4 H Eos % (Auto) 6.4 H Baso % (Auto) 0.6 Neut # (Auto) 3.4 Lymph # (Auto) 1.7 Dolores # (Auto) 0.6 Eos # (Auto) 0.4 Baso # (Auto) 0.0 WBC Differential . Differential Comment Auto diff final Sodium 141 Potassium 3.7 Chloride 104 Carbon Dioxide 28.2 Anion Gap 9 BUN 18 Creatinine 0.68 Estimated GFR Greater than 89 Random Glucose 80 Calcium 8.7 - Impressions ITS Impressions Chest X-Ray 09/24/18 17:41 CONCLUSION: Trace left base atelectasis. Discharge Plan - Discharge Disposition Patient Disposition: Discharge Home - Discharge Condition Condition: Stable - Discharge Order Discharge Orders: Discharge Order (Routine); Ordered 09/27/18 Ordered By: Audie Bowden - Physicians Team Primary Care Provider: [facility],Physician 's Attending Provider: Audie Bowden Other Providers: Figueroa Freeman, ; [employer]
[2018-09-27] MEDS: Heparin - SQ 10,000 UNITS/ML Vial SQ SCH (09:22)
[2018-09-27] MEDS: amLODIPine 5 MG Tablet PO SCH (09:22)
[2018-09-27] MEDS: Metoprolol Tartrate 25 MG Tablet PO SCH (09:22)
[2018-09-27] MEDS: Sod Chloride 0.9% Inj 1,000 ML IV.CONT SCH (09:23)
--- NOTE | 2018-09-27 10:03 | MA ---
cc: Figueroa Freeman DO DATE: 09/27/2018 PROCEDURE: Left heart catheterization, coronary angiogram, moderate sedation, 20 minutes. PREPROCEDURE DIAGNOSES: Chest pain, abnormal stress test (intermediate risk). POSTPROCEDURE DIAGNOSES: Mild coronary artery disease with small chronically occluded diagonal with collaterals, myocardial bridging of the ramus. MEDICATIONS: Versed 1 mg, fentanyl 50 mcg, nitro 200 mcg, heparin 3500 units. CONTRAST USED: 25 mL. FLUOROSCOPY: 2.1 minutes. MODERATE SEDATION: 20 minutes. FRAILTY SCORE: 3. ESTIMATED BLOOD LOSS: 10 mL PROCEDURAL SUMMARY: Suresh Burnette is a 68-year-old male, who previously was here and underwent stress testing due to chest pain. He was found to have anterior ischemia of a moderate area, which was an intermediate risk stress test. Because of this, he was recommended cardiac catheterization. He went home and [facility], but was unable to and so presented back to the hospital. Risks, benefits, and alternatives were explained to him and he consented to such. He was brought to the lab and prepped in the usual sterile fashion. The right radial artery was accessed using modified Seldinger technique and placement of a 5/6-Occitan slender sheath. This was easily aspirated and flushed. A JR4 was advanced over a J-wire to the ascending aorta and across the aortic valve to measure a left ventricular pressure. This was pulled back across the aortic valve showing no significant gradient of aortic stenosis. JR4 was used for selective angiography of the right coronary artery system. This is exchanged out for a JL3.5, which was used for selective angiography of the left coronary artery system. JL3.5 was removed over a J wire. A radial band was placed over the arteriotomy site for hemostasis. The patient left the bobcat driver/labor cardiovascularly stable. FINDINGS: Left main normal-sized vessel with adequate reflux. It trifurcates into an LAD, circumflex, and ramus. LAD: Moderate size vessel with 20% disease ostially. Has mild tortuosity throughout, but no significant disease. He gives off a small diagonal, which is occluded at the ostium and fills with retrograde collaterals. Ramus moderate size vessel with significant tortuosity and appears to have myocardial bridging in the mid portion. LEFT CIRCUMFLEX: Large vessel, which has significant tortuosity, but no significant disease. It gives off 2 obtuse marginals, which are overall tortuous, but no significant disease. RCA: Moderate to large size vessel with tortuosity throughout. He gives off a PDA, as well as a posterolateral branch with no significant disease. LVEDP: 4. IMPRESSION: 1. Chest pain, possibly due to myocardial bridging. 2. Coronary artery disease with a small diagonal, which is ostially occluded and supplied by retrograde collaterals. RECOMMENDATIONS: 1. Mr. Burnette appears to have no significant lesions for intervention at this time. 2. He does have a small diagonal, which is overall around 1 mm, which is ostially occluded. This covers very little myocardium and actually has collaterals retrograde, which fill it and most likely is not the cause of his chest pain. 3. He does have myocardial bridging of a ramus branch, and he will be recommended continued medical therapy. 4. I would continue him on his beta yamileth and Norvasc therapy to keep his heart rate as close to 60 and his blood pressure controlled. 5. He will be watched overnight and if stable, in the morning, discharged home. Thank you for allowing me to see Suresh Burnette. If there are any questions, please do not hesitate to call. Figueroa Freeman DO VGOscar/em , 01:34 AM , 01:43 AM
[2018-09-27 11:48] VITALS: PULSE 54
--- NOTE | 2018-09-27 22:34 | P.PNCA ---
Subjective Interval history: No chest pain No complaints Medications and Allergies Allergies Allergy/AdvReac Type Severity Reaction Status Date / Time No Known Allergies Allergy Verified 09/21/18 03:30 Physical Exam Vital signs: Vital Signs 09/26/18 23:00 09/27/18 00:00 09/27/18 01:00 Temperature 97.8 F Pulse Rate 55 L 54 L 56 L Respiratory Rate 18 Blood Pressure 108/65 Pulse Oximetry 94 L 09/27/18 02:00 09/27/18 03:00 09/27/18 04:00 Temperature 97.4 F L Pulse Rate 57 L 57 L 60 Respiratory Rate 18 Blood Pressure 103/73 Pulse Oximetry 94 L 09/27/18 05:00 09/27/18 06:00 09/27/18 07:00 Temperature 97.7 F Pulse Rate 65 60 58 L Respiratory Rate 20 Blood Pressure 136/80 Pulse Oximetry 97 09/27/18 08:00 09/27/18 09:00 09/27/18 10:00 Temperature Pulse Rate 50 L 70 70 Respiratory Rate Blood Pressure Pulse Oximetry 09/27/18 11:00 Temperature Pulse Rate 54 L Respiratory Rate Blood Pressure Pulse Oximetry Intake & Output 09/27/18 09/27/18 09/28/18 06:59 18:59 06:59 Intake Total 480 / 480 1000 / 1000 Output Total 450 / 450 Balance 30 / 30 1000 / 1000 Weight 86 kg Intake: IV 1000 / 1000 NS Inj 1,000 ML @ 50 mls/hr IV. 1000 / 1000 CONT .Q20H AKSHAT Rx#:[id number] Oral 480 / 480 Output: Urine 450 / 450 Other: # Voids 2 Date of Last Bowel Movement 09/23/18 09/23/18 Narrative: GENERAL: NAD, AAOx3 SKIN: Warm and dry. HEAD: Atraumatic. Normocephalic. EYES: Pupils equal and round. No scleral icterus. No injection or drainage. ENT: No nasal bleeding or discharge. Mucous membranes pink and moist. NECK: Trachea midline. No JVD. CARDIOVASCULAR: Regular rate and rhythm. RESPIRATORY: No accessory muscle use. Clear to auscultation. Breath sounds equal bilaterally. GASTROINTESTINAL: Abdomen soft, non-tender, nondistended. Hepatic and splenic margins not palpable. MUSCULOSKELETAL: Extremities without clubbing, cyanosis, or edema. No obvious deformities. NEUROLOGICAL: Awake and alert. No obvious cranial nerve deficits. Motor grossly within normal limits. Five out of 5 muscle strength in the arms and legs. Normal speech. PSYCHIATRIC: Appropriate mood and affect; insight and judgment normal. Results 09/27/18 05:51 09/27/18 05:51 CBC 09/27/18 Range/Units 05:51 WBC 6.1 (4.0-11.0) th/mm3 RBC 4.71 (4.50-5.90) mil/mm3 Hgb 14.9 (13.0-17.0) gm/dL Hct 43.7 (39.0-51.0) % Plt Count 142 L (150-450) th/mm3 Neut # (Auto) 3.4 (1.8-7.7) th/mm3 Lymph # (Auto) 1.7 (1.0-4.8) th/mm3 Dickson # (Auto) 0.6 (0.0-0.9) th/mm3 Eos # (Auto) 0.4 (0.0-0.4) th/mm3 Baso # (Auto) 0.0 (0.0-0.2) th/mm3 Comprehensive Metabolic Panel 09/27/18 Range/Units 05:51 Sodium 141 (136-145) meq/L Potassium 3.7 (3.5-5.1) meq/L Chloride 104 (98-107) meq/L Carbon Dioxide 28.2 (21.0-32.0) meq/L BUN 18 (7-18) mg/dL Creatinine 0.68 (0.60-1.30) mg/dL Calcium 8.7 (8.5-10.1) mg/dL Intake and Output 09/27/18 09/27/18 09/27/18 06:59 14:59 22:59 Intake Total 480 / 480 1000 / 1000 Output Total 450 / 450 Balance 30 / 30 1000 / 1000 Intake: IV 1000 / 1000 NS Inj 1,000 ML @ 50 mls/hr IV. 1000 / 1000 CONT .Q20H AKSHAT Rx#:[id number] Oral 480 / 480 Output: Urine 450 / 450 Other: # Voids 2 Date of Last Bowel Movement 09/23/18 09/23/18 Weight 86 kg Assessment and Plan - Assessment (1) Abnormal stress test Code(s): R94.39 - Abnormal result of other cardiovascular function study Status: Acute (2) Chest pain Code(s): R07.9 - Chest pain, unspecified Status: Acute (3) Hyperlipidemia Code(s): E78.5 - Hyperlipidemia, unspecified Status: Acute - Plan 1) Chest pain/Abnormal stress test s/p cath Occluded small diagonal, appears old with collaterals Myocardial bridging of ramus branch Con't medical management with BB/[facility] Agree with decreasing Metoprolol to 12.5mg BID due to bradycardia 2) Cardiovascularly stable for discharge May [facility]or [facility] (2) Chest pain Qualifiers: Chest pain type: unspecified Qualified Code(s): R07.9 - Chest pain, unspecified
== END 2018-09-27 12:48 | disposition home or self-care (01) ==
LOC: NEPE 15:53 → INTOOBSV 20:35 → NEDA 20:35 → HCIS 22:21
PROVIDERS: ADMIT Hospitalist; ATTEND Hospitalist